=== PATIENT | female | born 1950 | race Caucasian/White ===

== ENCOUNTER 2020-12-16 12:15 | Inpatient (IN) ==
[2020-12-16 13:01] LABS: Mean Corpuscular Hemoglobin 30.5 pg (25-34); Mean Corpuscular Hgb Conc 33.3 g/dL (32-36); Mean Corpuscular Volume 91.5 fL (80-100); Platelet Count 297 K/uL (130-400); RDW Coefficient of Variation 13.6 % (11.5-14.5); RDW Standard Deviation 44.8 fL (36.4-46.3); Red Blood Count 4.26 M/uL (4.2-5.4); White Blood Count 9.68 K/uL (4.8-10.8)
[2020-12-16 13:04] LABS: iSTAT Creatinine 0.8 mg/dl (0.6-1.3); iSTAT Hemoglobin 13.6 g/dl (12.0-16.0); iSTAT Ionized Calcium 1.29 mmol/l (1.12-1.32); iSTAT Potassium 4.1 mmol/L (3.3-5.0)
--- NOTE | 2020-12-16 13:15 | XRay Report ---
XR chest 1V portable HISTORY: 70 years-old Female stroke alert acute strokelike symptoms COMPARISON: None TECHNIQUE: Portable AP view of the chest FINDINGS: Cardiomediastinal and hilar silhouettes are within normal limits. There is no pneumothorax, pleural e ffusion, airspace consolidation or overt pulmonary edema. The bones of the chest appear grossly intac t. IMPRESSION: No acute process. ACT 112: Negative or not required by law. The above report was generated using voice recognition software. It may contain grammatical, syntax o r spelling errors. Electronically signed by: Jett Rizo M.D. 12/16/2020 1:14 PM
[2020-12-16 13:18] LABS: Albumin Level 4.2 gm/dl (3.4-5.0); BUN Creatinine Ratio 27.2 (10-20); Calcium 9.5 mg/dl (8.5-10.1); Creatinine Clr Calc Pharmacy 63.4 ml/min; Est GFR (African American) 99.7 ml/min; Est GFR (Non-African American) 86.1 ml/min; Magnesium 2.3 mg/dl (1.8-2.4)
[2020-12-16 13:21] LABS: Albumin Globulin Ratio 1.2 (0.9-2); Bilirubin,Total 0.6 mg/dl (0.2-1); Globulin 3.6 gm/dl (2.5-4.0); Total Protein 7.8 gm/dl (6.4-8.2)
[2020-12-16 13:25] LABS: INR 1.1 (0.9-1.1); Partial Thromboplastin Ratio 0.9; Partial Thromboplastin Time 23.9 Seconds (21.0-31.0); Prothrombin Time 11.3 Seconds (9.0-12.0)
[2020-12-16] MEDS ORDERED: OPTIRAY 350 500ml IV ONE (14:22)
--- NOTE | 2020-12-16 14:35 | CT Scan Report ---
CT ANGIOGRAPHY OF THE NECK WITH CONTRAST CLINICAL HISTORY: cva sx COMPARISON STUDY: No previous studies for comparison. Technique: CT angiography of the carotid and vertebral arteries was obtained using Optiray and 3D rec onstruction on an independent workstation. NASCET criteria was utilized. Automated exposure control was utilized for the study. A dose lowering technique was utilized adhering to the principles of ALA RA. Findings: Lung apices are unremarkable. There is no cervical lymphadenopathy. No acute cervical spine fracture is noted. The bilateral common carotid, cervical internal carotid and vertebral arteries ar e patent. There is no stenosis within these vessels. There is no dissection. No aneurysm within the n aric is noted. The head CT and CTA of the head will be reported separately. IMPRESSION: Unremarkable CTA of the neck. No stenosis or dissection. ACT 112: Negative or not required by law. Electronically signed by: Manfred Grove M.D. 12/16/2020 2:34 PM
--- NOTE | 2020-12-16 14:37 | CT Scan Report ---
CT angio head wo/w CT DOSE: 1015.89 mGy.cm CLINICAL HISTORY: Stroke like symptoms TECHNIQUE: Unenhanced images were obtained the brain. CT angiography was then performed a dynamic hel ical fashion during intravenous administration of 118 cc of Optiray 350. MIP images were acquired. A dose lowering technique was utilized adhering to the principles of ALARA. COMPARISON STUDY: Noncontrast head CT dated 04/12/2019 FINDINGS: Noncontrast images reveal no intra or extra-axial mass lesions. There is basal ganglial min eralization. Since the prior study, the patient has developed a 16 mm hypodense lesion within the rig ht lentiform nucleus. This is most consistent with an infarct, possibly subacute. There is no acute h emorrhage. There is no hydrocephalus. There is no evidence of acute sinusitis. Angiographic images reveal no evidence of aneurysm. There is no evidence of major intracranial branch occlusion. The dural venous sinuses appear patent. There are no pathologically enhancing masses. IMPRESSION: 1. Interval development of a 16 mm hypodense lesion within the right lentiform nucleus. This is most consistent with an infarct possibly subacute. An MRI could be obtained in follow-up for further datin g as deemed clinically necessary. 2. No evidence of aneurysm. No evidence of major intracranial branch occlusion or stenosis. ACT 112: Negative or not required by law. Electronically signed by: Hudson Mejia M.D. 12/16/2020 2:35 PM
--- NOTE | 2020-12-16 15:54 | History & Physical Report ---
Date of Service December 16, 2020 Assessment & Plan (1) CVA (cerebral vascular accident): This is a 70-year-old female with PMH of type 2 diabetes, dyslipidemia, asthma and other medical problems listed below who presents with strokelike symptoms over the past week and was found to have hypodense lesion within the right lentiform nucleus that is most consistent with an infarct, possibly subacute. Left facial droop and dysarthric speech for the past week, along with fatigue Head CTA with interval development of a 16 mm hypodense lesion within the right lentiform nucleus. This is most consistent with an infarct possibly subacute Neck CTA with unremarkable CTA of the neck. No stenosis or dissection MRI brain w/wo contrast, echo w/ bubble study Continue aspirin and statin, added plavix Neuro checks PT, OT, speech therapy evaluations Routine neurology consult (2) Diabetes mellitus, type II: Diet controlled (3) HLD (hyperlipidemia): Continue statin (4) Asthma: Continue Singulair, albuterol inhaler prn DVT Ppx: SQ heparin Code status: FULL PCP: Trent Dispo: Admitted to PCU. Discharge planning ordered per stroke set protocol. Patient seen in collaboration with Dr. Allen. Please see addendum. History of Present Illness Chief Complaint: Strokelike symptoms Primary Care Provider: Makenna Pichardo MD This is a 70-year-old female with PMH of type 2 diabetes, dyslipidemia, asthma and other medical problems listed below who presents with strokelike symptoms over the past week. Underwent cataract surgery on 11/24 and 12/08. After second surgery, and close friends noted facial droop of left side of mouth and slurred speech. Also having some difficulty swallowing liquids. Patient also notes feeling generally weak and off balance over the past week. With symptoms persisting, patient came into ED today for further evaluation. Denies any keon weakness of arms or legs. No fever, chills, lightheadedness, visual changes, chest pain, shortness of breath, nausea, vomiting, abdominal pain, dysuria, diarrhea or constipation. Family history significant for Martha's disease. Patient tested negative in 2016. Also with remote history of trigeminal neuralgia. Allergies Allergy/AdvReac Type Severity Reaction Status Date / Time Sulfa (Sulfonamide Allergy Unknown Rash Verified 12/16/20 15:08 Antibiotics) Home Medications Medication Instructions Recorded Confirmed Type albuterol sulfate [ProAir HFA] 1 puff INHALATION Q6H PRN 04/17/19 12/16/20 History aspirin 81 mg PO QAM 04/17/19 12/16/20 History montelukast [Singulair] 10 mg PO PM 04/17/19 12/16/20 History PreserVision AREDS-2 2 tab PO DAILY 10/13/20 12/16/20 History levocetirizine [Xyzal] 5 mg PO QPM 10/13/20 12/16/20 History lisinopril 2.5 mg PO QPM 10/13/20 12/16/20 History atorvastatin 80 mg PO HS 12/16/20 12/16/20 History Past Med/Surg History Medical History Diabetes mellitus, type II Hearing deficit History of anesthesia reaction difficulty waking HLD (hyperlipidemia) Osteoporosis Surgical History History of cardiac cath 2005--no stents History of cataract surgery History of colonoscopy History of dilatation and curettage x2 History of endoscopic sinus surgery History of lumbar laminectomy History of surgery on right wrist PLATE & 9 SCREWS History of tonsillectomy History of wisdom tooth extraction Family History Aunt Family history of diabetes mellitus Uncle Family history of diabetes mellitus Other Martha chorea No family history of adverse response to anesthesia Social History Smoking Status: Never smoker Second Hand Exposure: Yes (parents smoked); Hx Alcohol Use: Yes Alcohol type: wine Hx Substance Use: No Preferred Language: Urdu Communication Ability: Effective 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 Physical Exam Physical Exam: General Appearance: WD/WN, vitals as above, NAD, sitting up in bed, pleasant, conversing easily Head: normocephalic, atraumatic Eyes: normal inspection, PERRL, conjunctivae normal, anicteric sclerae ENT: external ear and nose normal, oropharynx normal Neck: normal visual inspection, trachea midline, no thyromegaly Respiratory: normal respiratory effort, lungs clear to auscultation, no wheeze, rales, rhonchi. No accessory muscle use Cardiovascular: regular rate, rhythm, no murmur, normal peripheral pulses, no BLE edema. Vessels: no JVD Chest: normal inspection of chest Abdomen/GI: normal bowel sounds, soft, nontender, no hepatosplenomegaly Extremities/Musculoskeletal: no cyanosis or clubbing, extremities motor strength 5/5 Neurologic: PERRL, EOMI, accommodation nl, + L facial droop, mild dysarthria, CN's II-XI intact bilaterally and moves all extremities Psychiatric: A+Ox3, euthymic affect Skin: no rashes, normal color, warm/dry Results & Data Results & Data ([facility]) Vital Signs (Past 12 Hours) Vital Signs Temp Pulse Resp BP Pulse Ox 12/16/20 14:00 59 L 20 144/70 H 99 12/16/20 13:30 61 16 111/68 97 12/16/20 13:00 71 19 139/83 100 12/16/20 12:53 65 15 97 12/16/20 12:47 65 20 132/80 99 12/16/20 12:18 36.7 C 67 18 152/88 H 94 Laboratory Results Short CBC 12/16/20 Range/Units 12:44 WBC 9.68 (4.8-10.8) K/uL Hgb 13.0 (12.0-16.0) g/dL Hct 39.0 (37-47) % Plt Count 297 (130-400) K/uL BMP 12/16/20 12:44 Sodium 138 Potassium 4.0 Chloride 107 Carbon Dioxide 25 BUN 20 H Creatinine 0.72 Glucose 101 H Calcium 9.5 Liver Function 12/16/20 Range/Units 12:44 Total Bilirubin 0.6 (0.2-1) mg/dl AST 30 (15-37) U/L ALT 42 (12-78) U/L Alkaline Phosphatase 89 (45-117) U/L Albumin 4.2 (3.4-5.0) gm/dl Diagnostic Findings Chest X-Ray 12/16/20 12:44 XR chest 1V portable HISTORY: 70 years-old Female stroke alert acute strokelike symptoms COMPARISON: None TECHNIQUE: Portable AP view of the chest FINDINGS: Cardiomediastinal and hilar silhouettes are within normal limits. There is no pneumothorax, pleural effusion, airspace consolidation or overt pulmonary edema. The bones of the chest appear grossly intact. IMPRESSION: No acute process. ACT 112: Negative or not required by law. The above report was generated using voice recognition software. It may contain grammatical, syntax or spelling errors. Electronically signed by: Jett Rizo M.D. 12/16/2020 1:14 PM Head CTA 12/16/20 13:11 CT angio head wo/w CT DOSE: 1015.89 mGy.cm CLINICAL HISTORY: Stroke like symptoms TECHNIQUE: Unenhanced images were obtained the brain. CT angiography was then performed a dynamic helical fashion during intravenous administration of 118 cc of Optiray 350. MIP images were acquired. A dose lowering technique was utilized adhering to the principles of ALARA. COMPARISON STUDY: Noncontrast head CT dated 04/12/2019 FINDINGS: Noncontrast images reveal no intra or extra-axial mass lesions. There is basal ganglial mineralization. Since the prior study, the patient has developed a 16 mm hypodense lesion within the right lentiform nucleus. This is most consistent with an infarct, possibly subacute. There is no acute hemorrhage. There is no hydrocephalus. There is no evidence of acute sinusitis. Angiographic images reveal no evidence of aneurysm. There is no evidence of major intracranial branch occlusion. The dural venous sinuses appear patent. There are no pathologically enhancing masses. IMPRESSION: 1. Interval development of a 16 mm hypodense lesion within the right lentiform nucleus. This is most consistent with an infarct possibly subacute. An MRI could be obtained in follow-up for further dating as deemed clinically necessary. 2. No evidence of aneurysm. No evidence of major intracranial branch occlusion or stenosis. ACT 112: Negative or not required by law. Electronically signed by: Hudson Mejia M.D. 12/16/2020 2:35 PM Neck CTA 12/16/20 13:11 CT ANGIOGRAPHY OF THE NECK WITH CONTRAST CLINICAL HISTORY: cva sx COMPARISON STUDY: No previous studies for comparison. Technique: CT angiography of the carotid and vertebral arteries was obtained using Optiray and 3D reconstruction on an independent workstation. NASCET criteria was utilized. Automated exposure control was utilized for the study. A dose lowering technique was utilized adhering to the principles of ALARA. Findings: Lung apices are unremarkable. There is no cervical lymphadenopathy. No acute cervical spine fracture is noted. The bilateral common carotid, cervical internal carotid and vertebral arteries are patent. There is no stenosis within these vessels. There is no dissection. No aneurysm within the neck is noted. The head CT and CTA of the head will be reported separately. IMPRESSION: Unremarkable CTA of the neck. No stenosis or dissection. ACT 112: Negative or not required by law. Electronically signed by: Manfred Grove M.D. 12/16/2020 2:34 PM Code Status & VTE Plan VTE Prophylaxis Plan VTE Prophylaxis will be ordered: Yes Supervising Physician Co-Signing Physician Notes Patient seen and examined care coordinated with Ana Mock PA-C. 70-year-old female, presented with strokelike symptoms, facial droop symptom has been ongoing for past several days, Patient had recent cataract surgery, has been feeling very ill for 1-2 weeks, after surgery possible secondary to anesthetic affect,: Continued nausea vomiting, poor appetite, severe fatigue, weakness CT head showed small lacunar infarct: Patient does not have any other neurological deficit except for left facial droop. No complaint of chest pain or shortness of breath Family history positive for coronary artery disease/[place], mother at age 70s while on coronary bypass surgery Patient will monitor in telemetry, rule out arrhythmia. For thromboembolic events Resting echo, MRI brain ordered for stroke work-up Started on dual antiplatelets aspirin and Plavix Neuro consult requested Please refer to further documentation by Ana Mock PA-C for discussion of other medical issues. Marielle Allen MD
[2020-12-16] MEDS ORDERED: ASPIRIN 81 MG CHEW PO STA (16:06)
--- NOTE | 2020-12-16 17:24 | Emergency Department Note ---
History of Present Illness General Chief complaint: Neuro Symptoms/Deficit Stated complaint: STROKE TYPE SYMPTOMS Time Seen by Provider: 12/16/20 12:48 Source: patient, family ( at the bedside) and RN notes reviewed Mode of arrival: ambulatory Limitations: no limitations History of Present Illness Provider complaint: Facial asymmetry, speech difficulty, change in personality Maximum Pain Intensity: 0 This patient is a 70-year-old female who presents to the emergency department with complaints of strokelike symptoms per her . Patient apparently had cataract surgery performed over the last several weeks. After the first surgery 3 weeks ago, the patient had significant vomiting. She had her second surgery last week and was very fatigued immediately afterwards. states she has not quite recovered. He has noticed a change in her personality as she is flatter than usual. She had some confusion with speaking to friends recently. He noticed some slurred speech and facial droop while the patient was on the phone with her son today. She denies any trauma, headaches, vomiting. She is having some visual changes but they believe this is related to the recent cataract surgery. Home Medications Medication Instructions Recorded Confirmed Type albuterol sulfate [ProAir HFA] 1 puff INHALATION Q6H PRN 04/17/19 12/16/20 History aspirin 81 mg PO QAM 04/17/19 12/16/20 History montelukast [Singulair] 10 mg PO PM 04/17/19 12/16/20 History PreserVision AREDS-2 2 tab PO DAILY 10/13/20 12/16/20 History levocetirizine [Xyzal] 5 mg PO QPM 10/13/20 12/16/20 History lisinopril 2.5 mg PO QPM 10/13/20 12/16/20 History atorvastatin 80 mg PO HS 12/16/20 12/16/20 History Allergies Allergy/AdvReac Type Severity Reaction Status Date / Time Sulfa (Sulfonamide Allergy Unknown Rash Verified 12/16/20 15:08 Antibiotics) Past Med/Surg History Medical History Diabetes mellitus, type II Hearing deficit History of anesthesia reaction difficulty waking HLD (hyperlipidemia) Osteoporosis Surgical History History of cardiac cath 2005--no stents History of cataract surgery History of colonoscopy History of dilatation and curettage x2 History of endoscopic sinus surgery History of lumbar laminectomy History of surgery on right wrist PLATE & 9 SCREWS History of tonsillectomy History of wisdom tooth extraction Family History Aunt Family history of diabetes mellitus Uncle Family history of diabetes mellitus Other Martha chorea No family history of adverse response to anesthesia Social History Smoking Status: Never smoker Second Hand Exposure: Yes (parents smoked); Hx Alcohol Use: Yes Alcohol type: wine Hx Substance Use: No Preferred Language: Kittitian Communication Ability: Effective 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 and A total of 10 systems reviewed and were otherwise negative Physical Exam Vital Signs Vital Signs - 24 hr 12/16/20 12:18 12/16/20 12:47 12/16/20 12:53 Temperature 36.7 C Temperature Source Temporal Artery Scan Pulse Rate 67 65 65 Pulse Rate from SpO2 Sensor 65 65 Respiratory Rate 18 20 15 Respiratory Effort / Characteristics Non-Labored Respiratory Depth Normal Blood Pressure 152/88 H 132/80 Blood Pressure Mean 109 97 Pulse Oximetry 94 99 97 Oxygen Delivery Method Room Air Sepsis Recent Fever Within 48 Hours No Sepsis New/Unexplained Change in Mental Status No Sepsis Action Taken by Nursing No Action Required 12/16/20 12:54 12/16/20 13:00 12/16/20 13:30 Temperature Temperature Source Pulse Rate 71 61 Pulse Rate from SpO2 Sensor 73 62 Respiratory Rate 19 16 Respiratory Effort / Characteristics Respiratory Depth Blood Pressure 139/83 111/68 Blood Pressure Mean 101 82 Pulse Oximetry 100 97 Oxygen Delivery Method Room Air Sepsis Recent Fever Within 48 Hours Sepsis New/Unexplained Change in Mental Status Sepsis Action Taken by Nursing 12/16/20 14:00 12/16/20 15:00 12/16/20 15:01 Temperature Temperature Source Pulse Rate 59 L 65 63 Pulse Rate from SpO2 Sensor 59 L Respiratory Rate 20 20 20 Respiratory Effort / Characteristics Respiratory Depth Blood Pressure 144/70 H 139/62 Blood Pressure Mean 94 87 Pulse Oximetry 99 Oxygen Delivery Method Sepsis Recent Fever Within 48 Hours Sepsis New/Unexplained Change in Mental Status Sepsis Action Taken by Nursing 12/16/20 15:10 12/16/20 15:20 12/16/20 15:30 Temperature Temperature Source Pulse Rate 63 65 61 Pulse Rate from SpO2 Sensor Respiratory Rate 18 19 14 Respiratory Effort / Characteristics Respiratory Depth Blood Pressure 131/77 Blood Pressure Mean 95 Pulse Oximetry Oxygen Delivery Method Sepsis Recent Fever Within 48 Hours Sepsis New/Unexplained Change in Mental Status Sepsis Action Taken by Nursing 12/16/20 15:40 Temperature Temperature Source Pulse Rate 71 Pulse Rate from SpO2 Sensor Respiratory Rate 18 Respiratory Effort / Characteristics Respiratory Depth Blood Pressure Blood Pressure Mean Pulse Oximetry Oxygen Delivery Method Sepsis Recent Fever Within 48 Hours Sepsis New/Unexplained Change in Mental Status Sepsis Action Taken by Nursing Vital signs reviewed. General: Well-appearing 70-year-old female, in no significant distress. HEENT: No junk tidal injection, PERRLA, neck supple. Cardiovascular: Regular rate and rhythm, no extra sounds. Pulmonary: Clear to auscultation bilaterally, normal work of breathing. Abdomen: Soft, nontender, nondistended, positive bowel sounds. Musculoskeletal: Atraumatic, no peripheral edema. Neurologic: Patient awake alert and oriented x 3, full strength in all 4 extremities. Cranial nerves 2 through 12 grossly intact with the exception of slight left nasolabial fold flattening. Intact [id number], negative pronator drift. Skin: Warm, dry, no rash Course Administered Medications Aspirin (Aspirin 81 Mg Ectab) 81 mg PO QAM [facility] Stop: 01/16/21 08:59 Last Admin: 12/17/20 08:20 Dose: 81 mg Documented by: [id number] Atorvastatin Calcium (Atorvastatin 40 Mg Tab) 80 mg PO HS [facility] Stop: 01/15/21 20:59 Last Admin: 12/17/20 20:58 Dose: 80 mg Documented by: [id number] Admin: 12/16/20 20:38 Dose: 80 mg Documented by: [id number] Cetirizine HCl (Cetirizine Hcl 10 Mg Tablet) 5 mg PO QPM [facility] Stop: 01/15/21 20:59 Last Admin: 12/17/20 20:59 Dose: 5 mg Documented by: [id number] Admin: 12/16/20 20:38 Dose: 5 mg Documented by: [id number] Clopidogrel Bisulfate (Clopidogrel Bisulfate 75 Mg Tab) 75 mg PO QAM [facility] Stop: 01/16/21 08:59 Last Admin: 12/17/20 08:20 Dose: 75 mg Documented by: [id number] Heparin Sodium (Porcine) (Heparin Sod 5,000 Unit/0.5 Ml Vial) 5,000 units SQ Q8 [facility] Stop: 01/15/21 21:59 Last Admin: 12/17/20 21:14 Dose: Not Given Documented by: [id number] Admin: 12/17/20 14:27 Dose: 5,000 units Documented by: [id number] Admin: 12/17/20 06:04 Dose: Not Given Documented by: [id number] Admin: 12/16/20 22:00 Dose: Not Given Documented by: [id number] Lisinopril (Lisinopril 2.5 Mg Tab) 2.5 mg PO QPM [facility] Stop: 01/15/21 20:59 Last Admin: 12/17/20 20:59 Dose: 2.5 mg Documented by: [id number] Admin: 12/16/20 20:38 Dose: 2.5 mg Documented by: [id number] Montelukast Sodium (Montelukast Sodium 10 Mg Tablet) 10 mg PO PM [facility] Stop: 01/15/21 20:59 Last Admin: 12/17/20 21:00 Dose: 10 mg Documented by: [id number] Admin: 12/16/20 20:39 Dose: 10 mg Documented by: [id number] Multivitamins/Minerals (Cerovite Adv Formula Tab) 1 tab PO DAILY [facility] Stop: 01/16/21 08:59 Last Admin: 12/17/20 08:20 Dose: 1 tab Documented by: [id number] Discontinued Medications Acetaminophen (Acetaminophen 325 Mg Tab) Confirm Administered Dose 650 mg .ROUTE .STK-MED ONE Stop: 12/17/20 09:29 Last Admin: 12/17/20 09:33 Dose: 650 mg Documented by: [id number] Aspirin (Aspirin 81 Mg Chew) 324 mg PO NOW STA Stop: 12/16/20 16:07 Last Admin: 12/16/20 16:28 Dose: 324 mg Documented by: [id number] Clopidogrel Bisulfate (Clopidogrel Bisulfate 75 Mg Tab) 75 mg PO NOW ONE Stop: 12/16/20 18:33 Last Admin: 12/16/20 19:19 Dose: 75 mg Documented by: [id number] Gadobutrol (Gadobutrol 65ml Vial) 5.3 ml IV ONCE ONE Stop: 12/16/20 22:48 Last Admin: 12/16/20 22:48 Dose: 5.3 ml Documented by: [id number] Ioversol (Optiray 350 500ml) 118 ml IV ONCE ONE Stop: 12/16/20 14:23 Last Admin: 12/16/20 14:23 Dose: 118 ml Documented by: [id number] Medical Decision Making Differential Diagnosis Infection, dehydration, metabolic abnormality, hypo/hyperglycemia, electrolyte disturbance, anemia, hypoxia, cardiac sources, intracerebral event, toxicologic, neurologic, as well as other pathologies. Medical Records Attestation: I reviewed the patient's medical records. Home Medications Current Medication List: was personally reviewed by me Laboratory Data Attestation: I reviewed the patient's lab results. Result diagrams: 12/17/20 05:31 12/17/20 05:31 Lab Results 12/16/20 12/16/20 12/16/20 Range/Units 12:44 12:44 12:44 WBC 9.68 (4.8-10.8) K/uL RBC 4.26 (4.2-5.4) M/uL Hgb 13.0 (12.0-16.0) g/dL POC Hgb (12.0-16.0) g/dl Hct 39.0 (37-47) % POC Hct (37-47) % MCV 91.5 (80-100) fL MCH 30.5 (25-34) pg MCHC 33.3 (32-36) g/dL RDW Std Deviation 44.8 (36.4-46.3) fL RDW Coeff of Santiago 13.6 (11.5-14.5) % Plt Count 297 (130-400) K/uL MPV 10.0 (7.4-10.4) fL PT 11.3 (9.0-12.0) Seconds INR 1.1 (0.9-1.1) APTT 23.9 (21.0-31.0) Seconds PTT Ratio 0.9 POC Sodium (135-144) mmol/L Sodium 138 (136-145) mmol/L POC Potassium (3.3-5.0) mmol/L Potassium 4.0 (3.5-5.1) mmol/L POC Chloride (101-112) mmol/L Chloride 107 (98-107) mmol/L Carbon Dioxide 25 (21-32) mmol/L POC Total CO2 (24-31) mmol/L Anion Gap 6.0 (3-11) POC Anion Gap (16-25) mmol/L POC BUN (7-18) mg/dl BUN 20 H (7-18) mg/dl Creatinine 0.72 (0.6-1.2) mg/dl POC Creatinine (0.6-1.3) mg/dl Est Cr Clr Drug Dosing 63.4 ml/min Est GFR ( Amer) 99.7 ml/min Est GFR (Non-Af Amer) 86.1 ml/min BUN/Creatinine Ratio 27.2 H (10-20) Glucose 101 H (70-99) mg/dl POC Glucose (70-99) mg/dl POC Glucose (other) (70-99) mg/dl Calcium 9.5 (8.5-10.1) mg/dl POC Ioniz Calcium Jeff (1.12-1.32) mmol/l Magnesium 2.3 (1.8-2.4) mg/dl Total Bilirubin 0.6 (0.2-1) mg/dl AST 30 (15-37) U/L ALT 42 (12-78) U/L Alkaline Phosphatase 89 (45-117) U/L Total Protein 7.8 (6.4-8.2) gm/dl Albumin 4.2 (3.4-5.0) gm/dl Globulin 3.6 (2.5-4.0) gm/dl Albumin/Globulin Ratio 1.2 (0.9-2) COVID-19 Eval Order SARS-CoV-2 (PCR) (Negative) 12/16/20 12/16/20 12/16/20 Range/Units 12:45 12:52 14:45 WBC (4.8-10.8) K/uL RBC (4.2-5.4) M/uL Hgb (12.0-16.0) g/dL POC Hgb 13.6 (12.0-16.0) g/dl Hct (37-47) % POC Hct 40 (37-47) % MCV (80-100) fL MCH (25-34) pg MCHC (32-36) g/dL RDW Std Deviation (36.4-46.3) fL RDW Coeff of Santiago (11.5-14.5) % Plt Count (130-400) K/uL MPV (7.4-10.4) fL PT (9.0-12.0) Seconds INR (0.9-1.1) APTT (21.0-31.0) Seconds PTT Ratio POC Sodium 140 (135-144) mmol/L Sodium (136-145) mmol/L POC Potassium 4.1 (3.3-5.0) mmol/L Potassium (3.5-5.1) mmol/L POC Chloride 103 (101-112) mmol/L Chloride (98-107) mmol/L Carbon Dioxide (21-32) mmol/L POC Total CO2 25 (24-31) mmol/L Anion Gap (3-11) POC Anion Gap 16.0 (16-25) mmol/L POC BUN 20 H (7-18) mg/dl BUN (7-18) mg/dl Creatinine (0.6-1.2) mg/dl POC Creatinine 0.8 (0.6-1.3) mg/dl Est Cr Clr Drug Dosing ml/min Est GFR ( Amer) ml/min Est GFR (Non-Af Amer) ml/min BUN/Creatinine Ratio (10-20) Glucose (70-99) mg/dl POC Glucose 108 H (70-99) mg/dl POC Glucose (other) 102 H (70-99) mg/dl Calcium (8.5-10.1) mg/dl POC Ioniz Calcium Jeff 1.29 (1.12-1.32) mmol/l Magnesium (1.8-2.4) mg/dl Total Bilirubin (0.2-1) mg/dl AST (15-37) U/L ALT (12-78) U/L Alkaline Phosphatase (45-117) U/L Total Protein (6.4-8.2) gm/dl Albumin (3.4-5.0) gm/dl Globulin (2.5-4.0) gm/dl Albumin/Globulin Ratio (0.9-2) COVID-19 Eval Order Covid19 at [facility] SARS-CoV-2 (PCR) (Negative) 12/16/20 Range/Units 14:45 WBC (4.8-10.8) K/uL RBC (4.2-5.4) M/uL Hgb (12.0-16.0) g/dL POC Hgb (12.0-16.0) g/dl Hct (37-47) % POC Hct (37-47) % MCV (80-100) fL MCH (25-34) pg MCHC (32-36) g/dL RDW Std Deviation (36.4-46.3) fL RDW Coeff of Santiaog (11.5-14.5) % Plt Count (130-400) K/uL MPV (7.4-10.4) fL PT (9.0-12.0) Seconds INR (0.9-1.1) APTT (21.0-31.0) Seconds PTT Ratio POC Sodium (135-144) mmol/L Sodium (136-145) mmol/L POC Potassium (3.3-5.0) mmol/L Potassium (3.5-5.1) mmol/L POC Chloride (101-112) mmol/L Chloride (98-107) mmol/L Carbon Dioxide (21-32) mmol/L POC Total CO2 (24-31) mmol/L Anion Gap (3-11) POC Anion Gap (16-25) mmol/L POC BUN (7-18) mg/dl BUN (7-18) mg/dl Creatinine (0.6-1.2) mg/dl POC Creatinine (0.6-1.3) mg/dl Est Cr Clr Drug Dosing ml/min Est GFR ( Amer) ml/min Est GFR (Non-Af Amer) ml/min BUN/Creatinine Ratio (10-20) Glucose (70-99) mg/dl POC Glucose (70-99) mg/dl POC Glucose (other) (70-99) mg/dl Calcium (8.5-10.1) mg/dl POC Ioniz Calcium Jeff (1.12-1.32) mmol/l Magnesium (1.8-2.4) mg/dl Total Bilirubin (0.2-1) mg/dl AST (15-37) U/L ALT (12-78) U/L Alkaline Phosphatase (45-117) U/L Total Protein (6.4-8.2) gm/dl Albumin (3.4-5.0) gm/dl Globulin (2.5-4.0) gm/dl Albumin/Globulin Ratio (0.9-2) COVID-19 Eval Order SARS-CoV-2 (PCR) NEGATIVE (Negative) Imaging Data Radiologist's Impression: Chest X-Ray 12/16/20 12:44 XR chest 1V portable HISTORY: 70 years-old Female stroke alert acute strokelike symptoms COMPARISON: None TECHNIQUE: Portable AP view of the chest FINDINGS: Cardiomediastinal and hilar silhouettes are within normal limits. There is no pneumothorax, pleural effusion, airspace consolidation or overt pulmonary edema. The bones of the chest appear grossly intact. IMPRESSION: No acute process. ACT 112: Negative or not required by law. The above report was generated using voice recognition software. It may contain grammatical, syntax or spelling errors. Electronically signed by: Jett Rizo M.D. 12/16/2020 1:14 PM Head CTA 12/16/20 13:11 CT angio head wo/w CT DOSE: 1015.89 mGy.cm CLINICAL HISTORY: Stroke like symptoms TECHNIQUE: Unenhanced images were obtained the brain. CT angiography was then performed a dynamic helical fashion during intravenous administration of 118 cc of Optiray 350. MIP images were acquired. A dose lowering technique was utilized adhering to the principles of ALARA. COMPARISON STUDY: Noncontrast head CT dated 04/12/2019 FINDINGS: Noncontrast images reveal no intra or extra-axial mass lesions. There is basal ganglial mineralization. Since the prior study, the patient has developed a 16 mm hypodense lesion within the right lentiform nucleus. This is most consistent with an infarct, possibly subacute. There is no acute hemorrhage. There is no hydrocephalus. There is no evidence of acute sinusitis. Angiographic images reveal no evidence of aneurysm. There is no evidence of major intracranial branch occlusion. The dural venous sinuses appear patent. There are no pathologically enhancing masses. IMPRESSION: 1. Interval development of a 16 mm hypodense lesion within the right lentiform nucleus. This is most consistent with an infarct possibly subacute. An MRI could be obtained in follow-up for further dating as deemed clinically necessary. 2. No evidence of aneurysm. No evidence of major intracranial branch occlusion or stenosis. ACT 112: Negative or not required by law. Electronically signed by: Hudson Mejia M.D. 12/16/2020 2:35 PM Neck CTA 12/16/20 13:11 CT ANGIOGRAPHY OF THE NECK WITH CONTRAST CLINICAL HISTORY: cva sx COMPARISON STUDY: No previous studies for comparison. Technique: CT angiography of the carotid and vertebral arteries was obtained using Optiray and 3D reconstruction on an independent workstation. NASCET criteria was utilized. Automated exposure control was utilized for the study. A dose lowering technique was utilized adhering to the principles of ALARA. Findings: Lung apices are unremarkable. There is no cervical lymphadenopathy. No acute cervical spine fracture is noted. The bilateral common carotid, cervical internal carotid and vertebral arteries are patent. There is no stenosis within these vessels. There is no dissection. No aneurysm within the neck is noted. The head CT and CTA of the head will be reported separately. IMPRESSION: Unremarkable CTA of the neck. No stenosis or dissection. ACT 112: Negative or not required by law. Electronically signed by: Manfred Grove M.D. 12/16/2020 2:34 PM ECG Data Attestation: I personally reviewed and interpreted this ECG as follows: Indication: + weakness Rate (beats per minute): 67 Rhythm: + normal sinus ECG Intervals/blocks: + Normal QRS and + Normal QT-c ECG [place]: + Normal ECG ST segments: + Normal ST segments ECG Findings: no PACs and no PVCs Blood Pressure Blood Pressure Findings: Elevated blood pressure Blood Pressure Disposition: further management by hospitalist MDM Narrative This patient was evaluated and appeared to be in no significant distress. IV access was obtained and laboratory work was drawn. An order for cardiac monitoring was placed and the patient is noted to be in a sinus rhythm at [address] imaging of the head and neck was performed and reveals an interval development of a 16mm hypodense lesion within the right lentiform nucleus, consistent with subacute infarct. Patient was given aspirin 324 mg to chew. EKG can perms a sinus rhythm without of ischemia or ectopy. Patient and her were made aware of the findings. Covid swab was performed and is negative. I did discuss the case with the hospitalist service who will evaluate the patient for admission and further management. Impression & Plan Cerebrovascular accident Discharge Plan Visit Data Chief Complaint: Neuro Symptoms/Deficit Stated Complaint: STROKE TYPE SYMPTOMS ED Provider: Natacha Avery Discharge Problem: Cerebrovascular accident Patient Disposition: Admitted As Inpatient Discharge Instructions Interventions: ED Discharge Assessment Last Done: 12/16/20 17:48 Discharge Problem: Cerebrovascular accident Qualifiers: CVA mechanism: unspecified Qualified Code(s): I63.9 - Cerebral infarction, unspecified
[2020-12-16] MEDS ORDERED: CLOPIDOGREL BISULFATE 75 MG TAB PO ONE (18:32)
[2020-12-16] MEDS ORDERED: PHARMACIST DISCHARGE MED REC CONSULT PRN (18:32)
[2020-12-16] MEDS ORDERED: POLYETHYLENE (MIRALAX) 17 GM PACK PO PRN (18:32)
[2020-12-16] MEDS ORDERED: ONDANSETRON INJ 2 MG/ML 2 ML VIAL IV PRN (18:32)
[2020-12-16] MEDS ORDERED: ALBUTEROL HFA 8 GM INHALER INH PRN (18:47)
[2020-12-16] MEDS: lisinopril 2.5 MG TAB PO SCH (20:38)
[2020-12-16] MEDS: CETIRIZINE HCL 10 MG TABLET PO SCH (20:38)
[2020-12-16] MEDS: ATORVASTATIN 40 MG TAB PO SCH (20:38)
[2020-12-16] MEDS: MONTELUKAST SODIUM 10 MG TABLET PO SCH (20:39)
[2020-12-16] MEDS: HEPARIN SOD 5,000 UNIT/0.5 ML VIAL SQ SCH (22:00)
[2020-12-16] MEDS ORDERED: GADOBUTROL 65ML VIAL IV ONE (22:47)
[2020-12-17 05:52] LABS: Hematocrit (blood only) 34.8 % (37-47); Hemoglobin 11.8 g/dL (12.0-16.0); Mean Corpuscular Hemoglobin 30.8 pg (25-34); Mean Corpuscular Hgb Conc 33.9 g/dL (32-36); Mean Corpuscular Volume 90.9 fL (80-100); Mean Platelet Volume 10.1 fL (7.4-10.4); Platelet Count 258 K/uL (130-400); RDW Coefficient of Variation 13.5 % (11.5-14.5); RDW Standard Deviation 45.3 fL (36.4-46.3); Red Blood Count 3.83 M/uL (4.2-5.4); White Blood Count 7.28 K/uL (4.8-10.8)
[2020-12-17] MEDS: HEPARIN SOD 5,000 UNIT/0.5 ML VIAL SQ SCH ×3 (06:04→21:14)
[2020-12-17 06:14] LABS: Estimated Average Glucose 140 mg/dl; Hemoglobin A1C 6.5 % (4.5-5.6)
[2020-12-17 06:21] LABS: BUN Creatinine Ratio 24.4 (10-20); Calcium 8.5 mg/dl (8.5-10.1); Creatinine Clr Calc Pharmacy 73.6 ml/min; Est GFR (African American) 107.4 ml/min; Est GFR (Non-African American) 92.7 ml/min; Potassium 4.1 mmol/L (3.5-5.1)
--- NOTE | 2020-12-17 08:19 | Electrocardiogram Report ---
Test Reason : Blood Pressure : / mmHG Vent. Rate : 067 BPM Atrial Rate : 067 BPM P-R Int : 152 ms QRS Dur : 084 ms QT Int : 398 ms P-R-T Axes : 036 015 028 degrees QTc Int : 420 ms Normal sinus rhythm Low voltage QRS Borderline ECG No previous ECGs available Confirmed by Chuckie Alfaro ([id number]) on 12/17/2020 8:19:45 AM Referred By: REFERRED SELF Confirmed By:Chuckie Alfaro
[2020-12-17] MEDS: CLOPIDOGREL BISULFATE 75 MG TAB PO SCH (08:20)
[2020-12-17] MEDS: CEROVITE ADV FORMULA TAB PO SCH (08:20)
[2020-12-17] MEDS: ASPIRIN 81 MG ECTAB PO SCH (08:20)
[2020-12-17] MEDS ORDERED: ACETAMINOPHEN 325 MG TAB PO PRN (09:25)
[2020-12-17] MEDS: ACETAMINOPHEN 325 MG TAB ONE ×2 (09:33)
--- NOTE | 2020-12-17 09:42 | Magnetic Resonance Report ---
MRI OF THE BRAIN WITHOUT AND WITH IV CONTRAST CLINICAL HISTORY: Subacute stroke. Slurred speech. Left facial droop. Difficulty in ambulation. COMPARISON STUDY: CT scan dated 12/16/2020 TECHNIQUE: MRI of the brain was performed from the vertex to the skull base utilizing various T1 and T2 weighted sequences. Following the IV administration of 5.3 mL of Gadavist contrast, additional enh anced images were obtained. FINDINGS: Sagittal T1, axial diffusion, proton density and T2 weighted axial, coronal FLAIR, and pre and post a xial T1-weighted images were acquired. These were supplemented with post gadolinium coronal T1 weight ed images. No intra or extra-axial mass lesions are visualized. There is a 22 mm focus of restricted water diffusion within the right lentiform nucleus. This is quinton cative of a subacute infarct. There is no evidence of ventricular dilatation. Proton density T2-weighted and FLAIR images reveal scattered foci of increased T2 signal within the w love matter, likely on a small vessel basis. In addition there is increased FLAIR signal in the regio n of a subacute right lentiform nucleus infarct. There are no abnormal flow voids. There is no evidence of pathologic enhancement. IMPRESSION: 1. 22 mm focus of restricted water diffusion within the right lentiform nucleus. There is associated increased T2 and FLAIR signal. The findings are indicative of a subacute infarct 2. No evidence of intracranial mass. ACT 112: Negative or not required by law. Electronically signed by: Hudson Mejia M.D. 12/17/2020 9:40 AM
--- NOTE | 2020-12-17 14:28 | Neurology Consultation ---
Date of Consultation December 17, 2020 Assessment & Plan (1) Cerebrovascular accident: 1. MRI brain- 22 mm right lentiform nucleus infarct (subacute) 2. TTE- if not already done 3. CTA no occlusion or high grade stenosis 4. optimzie HTN HLD, DM LDL <70 5. outpatient ZIO 6. start plavix 75 mg daily and continue aspirin 81 mg daily x 21 days then stop aspirin and continue plavix for a lifetime follow up neurology in 4-6 weeks. Naty BERNABE Present on Admission?: Yes (2) HLD (hyperlipidemia): 1. optimize LDL <70 Present on Admission?: Yes (3) Diabetes mellitus, type II: 1. continue to monitor- PCP for further management Present on Admission?: Yes Supervising Physician Co-Signing Physician Notes I have seen and discussed above patient with Dr Naty Srivastava, neurology. Patient seen and examined. She remains with a left facial droop mild dysarthria left drift. This patient has sustained a right deep white matter SAUMYA tick in the form infarct day or so after cataract surgery under local anesthesia. There is no high-grade stenosis in the intracranial extracranial circulation. EKG was sinus rhythm. Agree with dual anti-platelet therapy as above follow-up on echo patient will need a night monitor post discharge. LDL is eighty goal is 70 or less. Patient should address further control of diabetes with primary care as an outpatient. Previously should follow up failed to tolerate metformin due to ongoing weight loss. Naty Srivastava MD History of Present Illness Reason for Consultation: subacute stroke, R lentiform nucleus Requesting Physician: Mirela Urrutia MD Attending Physician: Mirela Urrutia MD History of Present Illness Torrie is a 70 year old female with PMH- DM2, HLD, asthma. She presented with strokelike symptoms 12/16/2020 [facility] ED which were over the past week and was found to have hypodense lesion within the right lentiform nucleus that is most consistent with an infarct, possibly subacute. She has left facial droop and dysarthric speech for the past week, along with fatigue. CTA head with interval development of a 16 mm hypodense lesion within the right lentiform nucleus. According to her she had cataract surgery bilateral last one was 12/08/2020. She started having symptoms after the surgery but he thought it was because she had been sick from the first surgery. They had gone away with friends on Tuesday and her friend knew something was wrong. She was a bit confused and was slurring her speech. denies CP, SOB, abdominal pain, +left sided UE/LE weakness, facial droop (she feels is resolving). Allergies Allergy/AdvReac Type Severity Reaction Status Date / Time Sulfa (Sulfonamide Allergy Unknown Rash Verified 12/16/20 15:08 Antibiotics) Home Medications Medication Instructions Recorded Confirmed Type albuterol sulfate [ProAir HFA] 1 puff INHALATION Q6H PRN 04/17/19 12/16/20 History aspirin 81 mg PO QAM 04/17/19 12/16/20 History montelukast [Singulair] 10 mg PO PM 04/17/19 12/16/20 History PreserVision AREDS-2 2 tab PO DAILY 10/13/20 12/16/20 History levocetirizine [Xyzal] 5 mg PO QPM 10/13/20 12/16/20 History lisinopril 2.5 mg PO QPM 10/13/20 12/16/20 History atorvastatin 80 mg PO HS 12/16/20 12/16/20 History Patient History Medical History Diabetes mellitus, type II Hearing deficit History of anesthesia reaction difficulty waking HLD (hyperlipidemia) Osteoporosis Surgical History History of cardiac cath 2005--no stents History of cataract surgery History of colonoscopy History of dilatation and curettage x2 History of endoscopic sinus surgery History of lumbar laminectomy History of surgery on right wrist PLATE & 9 SCREWS History of tonsillectomy History of wisdom tooth extraction Family History Aunt Family history of diabetes mellitus Uncle Family history of diabetes mellitus Other [place] chorea No family history of adverse response to anesthesia Social History Smoking Status: Never smoker Second Hand Exposure: Yes (parents smoked); Hx Alcohol Use: Yes Alcohol type: wine Hx Substance Use: No Preferred Language: [place] Communication Ability: Effective 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 Beliefs That Will Affect Care: None Current Living Situation: Spouse Other Information That Helps Us Care for You: No Feels Safe at Home: Yes Assistive Devices: Glasses Review of Systems Review of Systems: All systems reviewed & are unremarkable except as noted in HPI & below Physical Exam Physical Exam: Physica Constitutional: appearance nourished, healthy and normal Ears, Nose, Mouth and Throat: mucous membranes moist, no injection and skin normal, eyes normal Cardiovascular: normal S-1 and S-2 and regular rate and rhythm Respiratory: clear to auscultation (CTA) Musculoskeletal: no peripheral edema and good distal pulses Skin: no stigmata of neurocutaneous disease noted and normal and intact Eyes: extraocular muscles intact (EOMI) and pupils equal, round and reactive to light (PERRL), gross peripheral vision intact NEUROLOGIC EXAMINATION: Mental status: Alert and interactive Oriented to full date and location Oriented to person Speech dysphasia with some words. identifies thumb, pen,ring, button, can say no ifs ands or buts Cranial Nerves left sided facial droop flattening of nasolabial fold on left eye brow raise symmetric Reflexes: Deep tendon reflexes were symmetrical and graded 2/5. down going toes Sensory: light cool and vibration intact Coordination: finger to nose intact on right slight dysmetric on left Gait/Stance: Posture normal. 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 left 4+/5, right 5/5, hip flex 5/5 bilaterally patellar flex ext 4+/5 left, plantar flex ext 5/5 bilaterally Results & Data ([facility]) Vital Signs (Past 12 Hours) Vital Signs Temp Pulse Pulse Resp BP BP Pulse Ox 12/17/20 08:00 36.5 C 60 79 18 112/68 98 12/17/20 04:00 36.4 C L 52 L 16 114/75 99 Laboratory Results Abnormal lab results 12/16/20 12/17/20 12/17/20 Range/Units 19:34 05:31 05:31 RBC 3.83 L (4.2-5.4) M/uL Hgb 11.8 L (12.0-16.0) g/dL Hct 34.8 L (37-47) % Chloride 109 H (98-107) mmol/L BUN/Creatinine Ratio 24.4 H (10-20) Glucose 114 H (70-99) mg/dl POC Glucose 126 H (70-99) mg/dl Hemoglobin A1c (4.5-5.6) % 12/17/20 Range/Units 05:31 RBC (4.2-5.4) M/uL Hgb (12.0-16.0) g/dL Hct (37-47) % Chloride (98-107) mmol/L BUN/Creatinine Ratio (10-20) Glucose (70-99) mg/dl POC Glucose (70-99) mg/dl Hemoglobin A1c 6.5 H (4.5-5.6) % Diagnostic Findings CTA head-. Interval development of a 16 mm hypodense lesion within the right lentiform nucleus. This is most consistent with an infarct possibly subacute. An MRI could be obtained in follow-up for further dating as deemed clinically necessary. No evidence of aneurysm. No evidence of major intracranial branch occlusion or s tenosis. CTA neck-Unremarkable CTA of the neck. No stenosis or dissection. MRI brain-22 mm focus of restricted water diffusion within the right lentiform nucleus. There is associated increased T2 and FLAIR signal. The findings are indicative of a subacute infarct No evidence of intracranial mass. (1) Cerebrovascular accident CVA mechanism: unspecified Qualified Code(s): I63.9 - Cerebral infarction, unspecified
--- NOTE | 2020-12-17 16:49 | Hospitalist Progress Note ---
Date of Service December 17, 2020 Assessment & Plan (1) CVA (cerebral vascular accident): This is a 70-year-old female with PMH of type 2 diabetes, dyslipidemia, asthma and other medical problems listed below who presents with strokelike symptoms over the past week and was found to have hypodense lesion within the right lentiform nucleus that is most consistent with an infarct, possibly subacute. Left facial droop and dysarthric speech for the past week, along with fatigue Head CTA with interval development of a 16 mm hypodense lesion within the right lentiform nucleus. Neck CTA with unremarkable CTA of the neck. No stenosis or dissection MRI brain w/wo contrast revealed 2 mm focus of restricted water diffusion within the right lentiform nucleus. There is associated increased T2 and FLAIR signal. The findings are indicative of a subacute infarct. Echo w/ bubble study Continue aspirin and statin, and plavix Work with PT/OT. Transthoracic echo has been ordered. (2) Diabetes mellitus, type II: Diet controlled (3) HLD (hyperlipidemia): Continue statin (4) Asthma: Continue Singulair, albuterol inhaler prn DVT Ppx: SQ heparin Code status: FULL PCP: [facility] Admission and Anticipated Discharge Date Admission Date: December 16, 2020 Subjective Patient is doing okay this morning. Reports her speech is improving as well as her left upper extremity weakness denies any headache or dizziness. Has any chest pain or shortness of breath. Denies any abdominal pain, diarrhea or dysuria. Review of Systems Review of Systems: All systems reviewed & are unremarkable except as noted in HPI & below Physical Exam Physical Exam: General: A&Ox3 HENT: NCAT, MMM, EOMI Eyes: PERRLA Neck: Supple, normal range of motion CVS: normal rate and rhythm Resp: b/l good breath sounds Abdomen: Soft, ND/NT, +BS Extremities: No c/c/e Neuro: face symmetric, noted facial droop, left upper extremity is weaker than the right but is improving Skin: warm and dry, no rashes/lesions/errythema MSK: normal ROM, no joint swelling/erythema Results & Data Results & Data ([facility]) Vital Signs (Past 12 Hours) Vital Signs Temp Pulse Pulse Resp BP Pulse Ox 12/17/20 15:44 37.0 C 64 16 108/67 97 12/17/20 14:55 61 12/17/20 08:00 36.5 C 60 79 18 112/68 98
[2020-12-17] MEDS: ATORVASTATIN 40 MG TAB PO SCH (20:58)
[2020-12-17] MEDS: CETIRIZINE HCL 10 MG TABLET PO SCH (20:59)
[2020-12-17] MEDS: lisinopril 2.5 MG TAB PO SCH (20:59)
[2020-12-17] MEDS: MONTELUKAST SODIUM 10 MG TABLET PO SCH (21:00)
[2020-12-18] MEDS: HEPARIN SOD 5,000 UNIT/0.5 ML VIAL SQ SCH (05:57)
[2020-12-18 06:48] LABS: Hemoglobin 12.7 g/dL (12.0-16.0); Mean Corpuscular Hemoglobin 30.7 pg (25-34); Mean Corpuscular Hgb Conc 33.4 g/dL (32-36); Mean Corpuscular Volume 91.8 fL (80-100); Mean Platelet Volume 10.3 fL (7.4-10.4); Platelet Count 268 K/uL (130-400); RDW Coefficient of Variation 13.3 % (11.5-14.5); RDW Standard Deviation 44.8 fL (36.4-46.3); Red Blood Count 4.14 M/uL (4.2-5.4); White Blood Count 7.55 K/uL (4.8-10.8)
[2020-12-18 07:33] LABS: BUN Creatinine Ratio 24.3 (10-20); Calcium 9.4 mg/dl (8.5-10.1); Creatinine Clr Calc Pharmacy 69.6 ml/min; Est GFR (African American) 106.8 ml/min; Est GFR (Non-African American) 92.2 ml/min; Potassium 4.1 mmol/L (3.5-5.1)
[2020-12-18] MEDS: CEROVITE ADV FORMULA TAB PO SCH (08:11)
[2020-12-18] MEDS: CLOPIDOGREL BISULFATE 75 MG TAB PO SCH (08:11)
[2020-12-18] MEDS: ASPIRIN 81 MG ECTAB PO SCH (08:11)
[2020-12-18] MEDS ORDERED: STROKE PATIENT DISCHARGE STA (10:40)
--- NOTE | 2020-12-18 11:11 | Pharmacy Report ---
Pharmacist Stroke Counseling - Date of Service December 18, 2020 - Scope: Pharmacy has been consulted to provide medication discharge counseling for this patient admitted with ischemic stroke as per the Pharmacist Discharge Counseling for Stroke Patients Protocol. - Medications on Discharge: Home Medications Medication Instructions Recorded Confirmed albuterol sulfate [ProAir HFA] 1 puff INHALATION Q6H PRN 04/17/19 12/16/20 montelukast [Singulair] 10 mg PO PM 04/17/19 12/16/20 PreserVision AREDS-2 2 tab PO DAILY 10/13/20 12/16/20 levocetirizine [Xyzal] 5 mg PO QPM 10/13/20 12/16/20 lisinopril 2.5 mg PO QPM 10/13/20 12/16/20 atorvastatin 80 mg PO HS 12/16/20 12/16/20 New Rx's Medication Instructions Recorded aspirin 81 mg PO QAM #19 tab 12/18/20 clopidogrel 75 mg PO QAM #30 tab 12/18/20 - Action: The above medications, specifically ones for stroke treatment/prophylaxis, have been reviewed in detail with the patient and/or patient mortician supplies sales representative(s) prior to discharge. This includes indication, common adverse reactions, drug interactions, and medication administration. Medication counseling has been employed using the teach-back method to ensure understanding. - Outcome: The patient and/or patient mortician supplies sales representative(s) have demonstrated understanding of the medications. Additional comments: Ms Chandra did not have any additional questions regarding her stroke medications. Plavix is the only new medication for her. We reviewed the plan to take ASA/Plavix x21 days, then she will stop ASA and continue Plavix indefinitely. I asked her to confirm this with her providers at f/u appts post- discharge. Thank you for allowing pharmacy to be involved in the care of this patient. Please call [phone] with any additional questions
--- NOTE | 2020-12-18 11:50 | Discharge Summary ---
Date of Service December 18, 2020 Admission HPI Per Admitting Provider This is a 70-year-old female with PMH of type 2 diabetes, dyslipidemia, asthma and other medical problems listed below who presents with strokelike symptoms over the past week. Underwent cataract surgery on 11/24 and 12/08. After second surgery, and close friends noted facial droop of left side of mouth and slurred speech. Also having some difficulty swallowing liquids. Patient also notes feeling generally weak and off balance over the past week. With symptoms persisting, patient came into ED today for further evaluation. Denies any keon weakness of arms or legs. No fever, chills, lightheadedness, visual changes, chest pain, shortness of breath, nausea, vomiting, abdominal pain, dysuria, diarrhea or constipation. Family history significant for Creek's disease. Patient tested negative in 2016. Also with remote history of trigeminal neuralgia. Admission Exam Per Admitting Provider General Appearance: WD/WN, vitals as above, NAD, sitting up in bed, pleasant, conversing easily Head: normocephalic, atraumatic Eyes: normal inspection, PERRL, conjunctivae normal, anicteric sclerae ENT: external ear and nose normal, oropharynx normal Neck: normal visual inspection, trachea midline, no thyromegaly Respiratory: normal respiratory effort, lungs clear to auscultation, no wheeze, rales, rhonchi. No accessory muscle use Cardiovascular: regular rate, rhythm, no murmur, normal peripheral pulses, no BLE edema. Vessels: no JVD Chest: normal inspection of chest Abdomen/GI: normal bowel sounds, soft, nontender, no hepatosplenomegaly Extremities/Musculoskeletal: no cyanosis or clubbing, extremities motor strength 5/5 Neurologic: PERRL, EOMI, accommodation nl, + L facial droop, mild dysarthria, CN's II-XI intact bilaterally and moves all extremities Psychiatric: A+Ox3, euthymic affect Skin: no rashes, normal color, warm/dry Principal Diagnosis CVA Discharge Exam General: A&Ox3 HENT: NCAT, MMM, EOMI Eyes: PERRLA Neck: Supple, normal range of motion CVS: normal rate and rhythm Resp: b/l good breath sounds Abdomen: Soft, ND/NT, +BS Extremities: No c/c/e Neuro: face symmetric, noted facial droop, left upper extremity is weaker than the right but is improving Skin: warm and dry, no rashes/lesions/errythema MSK: normal ROM, no joint swelling/erythema Discharge Data Allergies Allergy/AdvReac Type Severity Reaction Status Date / Time Sulfa (Sulfonamide Allergy Unknown Rash Verified 12/16/20 15:08 Antibiotics) Consultations 12/16/20 16:03 ED Decision to Admit Stat 12/16/20 18:32 Consult Neurology Routine Ordered Studies 12/16/20 13:11 CT angio head wo/w Stat CT angio neck with con Stat 12/16/20 18:32 MR brain wo/w con Routine Hospital Course (1) CVA (cerebral vascular accident): This is a 70-year-old female with PMH of type 2 diabetes, dyslipidemia, asthma and other medical problems listed below who presents with strokelike symptoms over the past week and was found to have hypodense lesion within the right lentiform nucleus that is most consistent with an infarct, possibly subacute. Left facial droop and dysarthric speech for the past week, along with fatigue Head CTA with interval development of a 16 mm hypodense lesion within the right lentiform nucleus. Neck CTA with unremarkable CTA of the neck. No stenosis or dissection MRI brain w/wo contrast revealed 2 mm focus of restricted water diffusion within the right lentiform nucleus. There is associated increased T2 and FLAIR signal. The findings are indicative of a subacute infarct. Echo w/ bubble study Continue aspirin and statin, and plavix. Aspirin and Plavix for 21 days total followed by Plavix for lifetime. Transthoracic echo was obtained which did not reveal any concerning findings and work with PT/OT and was referred to outpatient PT/OT on the day of discharge patient was doing okay. No new neurological deficits. Hemodynamically patient was doing fine. Patient was discharged in stable condition. (2) Diabetes mellitus, type II: Diet controlled (3) HLD (hyperlipidemia): Continue statin (4) Asthma: Continue Singulair, albuterol inhaler prn Total Time Total Time Spent Total Time Spent (In Minutes): 35 Discharge Plan Discharge Items Patient Disposition: Home - Self-Care Reason For Visit: LESION WITHIN R LENTIFORM NUCLEUS, SUBACUTE STROKE Discharge Diagnosis: CAV Activity: Resume your previous activity Non-emergency contact: Primary Care Provider Call non-emergency contact if: your symptoms worsen Follow-up/Referrals: Makenna Pichardo MD [Primary Care Provider] - 12/23/20 10:20 am (Date & Time 12/23/2020 10:20 AM Provider Makenna Newman MD Department General Internal Medicine [facility] ) Diet: Heart Healthy Addtl Attending Provider Instructions: Follow-up with your primary care physician and neurology as an outpatient. Appointments have been requested. Take aspirin and Plavix for 19 more days followed by Plavix only for lifetime. Pending Studies at Discharge: No Stand-Alone Forms: Medications to Prevent Stroke, [facility] [employer], Smoking Cessation Medications and DC Order Prescriptions: New clopidogrel 75 mg Tablet 75 mg PO QAM Qty: 30 RF: 0 aspirin 81 mg Tablet,Delayed Release (Dr/Ec) 81 mg PO QAM Qty: 19 RF: 0 Continued montelukast [Singulair] 10 mg Tablet 10 mg PO PM RF: 0 albuterol sulfate [ProAir HFA] 90 mcg/actuation Hfa Aerosol Inhaler 1 puff INHALATION Q6H PRN (Reason: Shortness Of Breath) RF: 0 atorvastatin 80 mg tablet 80 mg PO HS RF: 0 levocetirizine [Xyzal] 5 mg Tablet 5 mg PO QPM RF: 0 lisinopril 2.5 mg Tablet 2.5 mg PO QPM RF: 0 PreserVision AREDS-2 250-90-40-1 mg Capsule 2 tab PO DAILY RF: 0 Discontinued aspirin 81 mg Tablet,Delayed Release (Dr/Ec) 81 mg PO QAM RF: 0 Discharge Orders: Discharge Order (Routine); Ordered 12/18/20 Ordered By: Mirela Peña/Other Patient Handouts: Taking NSAIDs Safely, Stroke and Heart Disease, Managing Type 2 Diabetes, Symptoms of Stroke, What Is Ischemic Stroke?, What Is a TIA?, Aphasia: Improving Communication, Dysphagia: Exercises, Stroke: Taking Medicines, A1C Admission Data Admit Date/Time: 12/16/20 15:45 Attending Provider: Mirela Urrutia Admit Provider: Marielle Allen Primary Care Provider: Makenna Pichardo Other Providers: Marielle Allen ; Naty Srivastava Other Interventions: Discharge Summary Assessment (RN) Last Done: 12/18/20 10:44
== END 2020-12-18 12:10 | disposition home or self-care (01) | DRG 66 ==
LOC: ED 12:15 → 2S 15:45 → SUATTDRO 15:45 → 2S 17:48

== ENCOUNTER 2025-04-27 15:09 | Inpatient (IN) ==
--- NOTE | 2025-04-27 15:26 | Emergency Department Note ---
Impression & Plan Fracture of left hip ED Provider Note CHIEF COMPLAINT: Fall 30 minutes ago, left hip injury HISTORY OF PRESENT ILLNESS: Patient is a 75-year-old female with past medical history significant for asthma, diabetes, dyslipidemia, history of CVA, who presents to the emergency department via EMS for evaluation of a fall with left hip injury. 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 She had just used a oralia potty, came out of the bathroom, and tripped on some uneven ground and fell, landing on the left hip with immediate onset of pain. She was helped up by bystanders, and they were able to help her limp back to her tailgate. She did not strike her head or lose consciousness. She denies any other injuries. She took Tylenol, and applied ice to the left hip, but was noticing worsening pain and difficulty walking, so EMS was summoned. She points to the lateral aspect of the left hip when asked where she has pain. It does not radiate into the thigh or groin. She has no back pain. REVIEW OF SYSTEMS: Review of systems as per HPI. All other systems reviewed were negative. 10 systems reviewed. PMH: External medical records are reviewed and summarized as above/below. See Problem List. SOCIAL HISTORY: Patient lives locally with family. Retired. PHYSICAL EXAM: Vital Signs: Reviewed Nurse's notes. CONSTITUTIONAL: Pleasant, well-appearing 75-year-old female who is awake and alert and sitting semiupright on the gurney. She is in no acute distress. EYES: Pupils equal, round, reactive to light and accommodation. EOMs intact without nystagmus. Sclera are anicteric. CARDIOVASCULAR: Regular rate and rhythm. Peripheral pulses easily palpable. RESPIRATORY: Breath sounds equal and clear to auscultation. ABDOMEN: Bowel sounds are present. The abdomen is soft, nontender, nondistended. No guarding or rebound. INTEGUMENTARY: No lesions or rash, normal skin turgor. MUSCULOSKELETAL: Examination of the left lower extremity does not reveal any obvious leg length discrepancy. There is tenderness to palpation over the left greater trochanter, no groin pain. No pain over the left ASIS or PSIS or over the lumbar spinous processes. She has some mild discomfort with logroll. Further exam of the left hip was deferred due to concern for fracture. The left lower extremity is neurovascularly intact. EMERGENCY DEPARTMENT COURSE: The patient was seen and assessed as above. External medical records are reviewed. She presents to the emergency department for evaluation of left hip pain after a mechanical fall. She was offered but declined medication for discomfort. X-rays of the left hip/AP pelvis were o btained and per my interpretation consistent with a subcapital hip fracture. X-ray tech notified me of the hip fracture on x-ray, they took a chest x-ray per protocol while in the room. X-ray findings were viewed with the patient, need for hospitalization for surgical intervention was discussed. Hip fracture orders placed, including EKG and laboratory studies for medical clearance. Patient reviewed with ED casey saw operator, and consultation placed with the [facility] service for admission. Past Med/Surg History Problem List (Updated 04/27/25 @ 16:19 by Christy Leon) Fracture of left hip (Acute) Medical History H/O: stroke with residual effects HLD (hyperlipidemia) Diabetes mellitus, type II Asthma exercise induced--inhaler prn History of anesthesia reaction difficulty waking Osteoporosis Hearing deficit Surgical History History of cataract surgery bilateral History of surgery on right wrist PLATE & 9 SCREWS History of dilatation and curettage x2 History of lumbar laminectomy History of colonoscopy History of wisdom tooth extraction History of tonsillectomy History of endoscopic sinus surgery History of cardiac cath 2005--no stents Family History Aunt Family history of diabetes mellitus Uncle Family history of diabetes mellitus Father [place]'s disease Sister [place]'s disease Mother Heart disease Grandfather (Maternal) Heart disease Grandfather (Paternal) Heart disease Grandmother (Paternal) [place]'s disease Other No family history of adverse response to anesthesia Social History Smoking Status: Never smoker Second Hand Exposure: Yes (parents smoked); Do You Dip or Chew Tobacco: No; Hx Alcohol Use: Yes Alcohol type: wine Hx Substance Use: No Preferred Language: Yoruba Communication Ability: Effective Counter Former Required: No Beliefs That Will Affect Care: None Current Living Situation: Spouse Feels Safe at Home: Yes Assistive Devices: Glasses Allergies Allergies Allergy/AdvReac Type Severity Reaction Status Date / Time Sulfa (Sulfonamide Allergy Mild Rash Verified 06/01/22 12:55 Antibiotics) Home Meds Home Medications Medication Instructions Recorded Confirmed albuterol sulfate 90 mcg/actuation 1 puff inhalation Q6H PRN 04/17/19 01/04/24 aerosol inhaler (ProAir HFA) Shortness Of Breath vit C 250 mg-vit E 90 mg-zinc 40 2 tab PO DAILY 10/13/20 01/04/24 mg-copper 1 [id number] capsule (PreserVision AREDS-2) atorvastatin 80 mg tablet 80 mg PO HS 12/16/20 01/04/24 levocetirizine 5 mg tablet (Xyzal) 5 mg PO QPM PRN allergy symptoms 03/16/22 01/04/24 cholecalciferol (vitamin D3) PO 01/04/24 01/04/24 psyllium husk 0.4 gram capsule 0.4 g PO DAILY 01/04/24 01/04/24 (Metamucil) Previous Rx's Medication Instructions Recorded aspirin 81 mg tablet,delayed 81 mg PO DAILY #90 tabs 01/04/24 release gabapentin 100 mg capsule 100 mg PO DAILY #10 caps 07/03/24 Results & Data (ED) Vital Signs Vital Signs - 24 hr 04/27/25 15:15 Temperature 36.6 C Temperature Source Oral Pulse Rate 75 Respiratory Rate 16 Blood Pressure 129/70 Blood Pressure Mean 89 Pulse Oximetry 97 Oxygen Delivery Method Room Air Sepsis Recent Fever Within 48 Hours No Sepsis New/Unexplained Change in Mental Status No Sepsis Action Taken by Nursing No Action Required Home Medications Current Medication List: was personally reviewed by me Laboratory Data Attestation: I reviewed the patient's lab results. Imaging Data Attestation: I personally reviewed and interpreted this imaging study as follows: Radiologist's Impression: Hip/Pelvis X-Ray 04/27/25 15:23 INDICATION: Trauma TECHNIQUE: Frontal pelvis and 2 views of the left hip were obtained. COMPARISON: None FINDINGS: Minimally displaced acute traumatic subcapital fracture of the left femur. IMPRESSION: Minimally displaced acute traumatic subcapital fracture of the left femur. Electronically signed by Jose Angel Villanueva 04-27-2025 4:13 PM Chest X-Ray 04/27/25 16:01 EXAM: Portable AP chest radiograph TECHNIQUE: AP portable radiograph of the chest was obtained. INDICATION: Shortness of breath Comparison: Chest radiograph September 24, 2022 FINDINGS: LINES and TUBES: None CARDIOVASCULAR: Cardiac silhouette is stably and mildly enlarged. Atherosclerosis of the thoracic aorta LUNGS/PLEURA: No focal consolidation identified. Chronic interstitial lung changes. No significant pleural fluid. No discernible pneumothorax. OSSEOUS/OTHER: No displaced acute osseous process identified. IMPRESSION: No radiographic evidence of acute cardiopulmonary process. Electronically signed by RichJose Angel 04-27-2025 4:22 PM Discharge Plan Visit Data Chief Complaint: Hip Pain Stated Complaint: FALL, HIP PAIN ED Provider: Eddi Llamas ED Midlevel Provider: Christy Leon Discharge Problem: Fracture of left hip Patient Disposition: Being Evaluated by Hospitalist Condition: Fair Forms Stand Alone Forms: [facility] Prescriptions Prescriptions: No Action psyllium husk [Metamucil] 0.4 gram capsule 0.4 g PO DAILY PreserVision AREDS-2 250-90-40-1 mg Capsule 2 tab PO DAILY Patient Comments: KEEP FORGETTING TO TAKE levocetirizine [Xyzal] 5 mg tablet 5 mg PO QPM PRN (Reason: allergy symptoms) atorvastatin 40 mg tablet 40 mg PO HS escitalopram oxalate 10 mg tablet 10 mg PO DAILY montelukast 10 mg tablet 10 mg PO QPM fluticasone propionate 50 mcg/actuation spray,suspension 2 spray INTRANASAL DAILY lisinopril 2.5 mg tablet 2.5 mg PO DAILY aspirin 81 mg tablet,delayed release (DR/EC) 81 mg PO DAILY Referrals Referrals: Rosa M Renae PA-C [Primary Care Provider] -
--- NOTE | 2025-04-27 16:14 | XRay Report ---
INDICATION: Trauma TECHNIQUE: Frontal pelvis and 2 views of the left hip were obtained. COMPARISON: None FINDINGS: Minimally displaced acute traumatic subcapital fracture of the left femur. IMPRESSION: Minimally displaced acute traumatic subcapital fracture of the left femur. Electronically signed by Jose Angel Villanueva 04-27-2025 4:13 PM
--- NOTE | 2025-04-27 16:22 | XRay Report ---
EXAM: Portable AP chest radiograph TECHNIQUE: AP portable radiograph of the chest was obtained. INDICATION: Shortness of breath Comparison: Chest radiograph September 24, 2022 FINDINGS: LINES and TUBES: None CARDIOVASCULAR: Cardiac silhouette is stably and mildly enlarged. Atherosclerosis of the thoracic aorta LUNGS/PLEURA: No focal consolidation identified. Chronic interstitial lung changes. No significant pleural fluid. No discernible pneumothorax. OSSEOUS/OTHER: No displaced acute osseous process identified. IMPRESSION: No radiographic evidence of acute cardiopulmonary process. Electronically signed by Jose Angel Villanueva 04-27-2025 4:22 PM
[2025-04-27] MEDS ORDERED: MoRPHine SULFATE 2 MG/ML CARP IV PRN (16:52)
[2025-04-27 17:10] LABS: Hematocrit (blood only) 37.4 % (37.0-47.0); Hemoglobin 12.6 g/dl (12.0-16.0); Immature Granulocytes # (auto) 0.03 K/uL (0.01-0.20); Immature Granulocytes % (auto) 0.3 %; Mean Corpuscular Hemoglobin 30.7 pg (25.0-34.0); Mean Corpuscular Volume 91.0 fL (80.0-100.0); Platelet Count 246 K/uL (130-400); RDW Standard Deviation 44.5 fL (36.4-46.3); Red Blood Count 4.11 M/uL (4.20-5.40); White Blood Count 10.65 K/ul (4.8-10.8)
[2025-04-27 17:28] LABS: Alanine Aminotransferase 53.0 U/L (7-52); Albumin Globulin Ratio 1.5 (0.9-2); Albumin Level 4.1 gm/dl (3.4-5.0); Alkaline Phosphatase 107.0 U/L (34-104); Anion Gap 7.0 (3-11); Bilirubin,Total 0.3 mg/dl (0.2-1.0); Blood Urea Nitrogen 19.0 mg/dl (6-23); Calcium 9.6 mg/dl (8.6-10.3); Carbon Dioxide 28.0 mmol/L (21-32); Chloride 103.0 mmol/L (98-107); Creatinine Clr Calc Pharmacy 53.0 ml/min; Globulin 2.8 gm/dl (2.5-4.0); Glucose 123.0 mg/dl (70-99(Fasting)); Potassium 4.0 mmol/L (3.5-5.1); Sodium 138.0 mmol/L (136-145); Total Protein 6.9 gm/dl (6.0-8.3)
[2025-04-27 17:36] LABS: INR 1.1 (0.9-1.1); Partial Thromboplastin Time 25 Seconds (21-31); Prothrombin Time 11.8 Seconds (9.0-12.0)
[2025-04-27 17:45] LABS: Appearance Urine Clear (Clear); Glucose Urine UA Negative (Negative)
--- NOTE | 2025-04-27 18:28 | History & Physical Report ---
Date of Service April 27, 2025 Assessment & Plan (1) Fracture of left hip: (2) HLD (hyperlipidemia): (3) Asthma: (4) H/O: stroke with residual effects: Plan #Left hip fracture - confirmed on XR - Ortho consulted by ER, mildredal pending - pain control - keep NPO p MN - PT / OT post surgery #h/o stroke #HLD #HTN - cont aspirin (to resume after surgery), statin, lisinopril #Asthma - not in acute exacerbation - cont home meds #Anxiety - cont escitalopram #DVT ppx: SCDs, pharmacologic agent post surgery #Dispo- admit #Code status: Full code History of Present Illness Chief Complaint: Fall, hip fracture Primary Care Provider: Rosa M Renae PA-C 75 yr old F with PMHx of HLD, HTN, asthma, h/o stroke, osteoporosis, anxiety brought to ER after a mechanical fall. 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 She was helped up by bystanders but she was having severe hip pain. Thus she was brought to the ED. She denied head strike, LOC, or any prodromal symptoms. Aside from anxiety and pain, she is denying any other sympptoms. Workup revealed acute subcapital frac ture of left femur. Pt now being admitted to the hospital. Allergies Allergy/AdvReac Type Severity Reaction Status Date / Time Sulfa (Sulfonamide Allergy Mild Rash Verified 04/27/25 17:21 Antibiotics) Home Medications Medication Instructions Recorded Confirmed Type vit C 250 mg-vit E 90 mg-zinc 40 1 tab PO AMHS 10/13/20 04/27/25 History mg-copper 1 [id number] capsule (PreserVision AREDS-2) levocetirizine 5 mg tablet (Xyzal) 5 mg PO QPM 03/16/22 04/27/25 History psyllium husk 0.4 gram capsule 0.4 g PO DAILY 01/04/24 04/27/25 History (Metamucil) aspirin 81 mg tablet,delayed 81 mg PO QAM 04/27/25 04/27/25 History release atorvastatin 40 mg tablet 40 mg PO HS 04/27/25 04/27/25 History cholecalciferol (vitamin D3) 125 125 mcg PO QAM 04/27/25 04/27/25 History mcg (5,000 unit) tablet (Vitamin D3) cyclosporine 0.05 % eye drops in a 1 drp ophthalmic (eye) Q12H 04/27/25 04/27/25 History dropperette (Restasis) escitalopram oxalate 10 mg tablet 10 mg PO QAM 04/27/25 04/27/25 History fluticasone propionate 50 2 spray intranasal DAILY PRN 04/27/25 04/27/25 History mcg/actuation nasal Congestion spray,suspension lisinopril 2.5 mg tablet 2.5 mg PO QAM 04/27/25 04/27/25 History montelukast 10 mg tablet 10 mg PO QPM 04/27/25 04/27/25 History polyethylene glycol 400 0.25 % eye 1 drp ophthalmic (eye) AMHS 04/27/25 04/27/25 History drops (Blink Tears) Past Med/Surg History Problem List (Updated 04/27/25 @ 16:19 by hCristy Leon) Fracture of left hip (Acute) Medical History H/O: stroke with residual effects HLD (hyperlipidemia) Diabetes mellitus, type II Asthma exercise induced--inhaler prn History of anesthesia reaction difficulty waking Osteoporosis Hearing deficit Surgical History History of cataract surgery bilateral History of surgery on right wrist PLATE & 9 SCREWS History of dilatation and curettage x2 History of lumbar laminectomy History of colonoscopy History of wisdom tooth extraction History of tonsillectomy History of endoscopic sinus surgery History of cardiac cath 2005--no stents Family History Aunt Family history of diabetes mellitus Uncle Family history of diabetes mellitus Father [place]'s disease Sister [place]'s disease Mother Heart disease Grandfather (Maternal) Heart disease Grandfather (Paternal) Heart disease Grandmother (Paternal) [place]'s disease Other No family history of adverse response to anesthesia Social History Smoking Status: Never smoker Second Hand Exposure: Yes (parents smoked); Do You Dip or Chew Tobacco: No; Hx Alcohol Use: Yes Alcohol type: wine Hx Substance Use: No Preferred Language: Romanian Communication Ability: Effective Osteopathic Medicine Teacher Required: No Beliefs That Will Affect Care: None Current Living Situation: Spouse Feels Safe at Home: Yes Assistive Devices: Glasses Review of Systems Review of Systems: Comprehensive ROS completed and is otherwise negative. Physical Exam Physical Exam: Gen: no acute distress, lying in bed comfortable HEENT: NC/AT, MMM Lungs: nonlabored breathing, CTAB CVS: s1s2nl, RRR Abd: nl bowel sounds, soft, NT / ND : + [place] Ext: no edema Neuro: AAOx3 Psych: calm, cooperative Results & Data Results & Data Vital Signs (Past 12 Hours) Vital Signs Temp Pulse Pulse Resp BP BP Pulse Ox 04/27/25 18:00 76 25 H 142/78 H 95 04/27/25 17:36 76 04/27/25 17:30 76 18 139/73 96 04/27/25 15:15 36.6 C 75 16 129/70 97 O2 Del Method 04/27/25 18:00 04/27/25 17:36 04/27/25 17:30 Room Air 04/27/25 15:15 Room Air PG Care Time/CCT Total # of Minutes Spent Total Time Spent with Patient: Total time spent is greater than 50% in coordination of care (as documented) at patient's floor/unit and/or counseling patient: Coding Level of Care Code 97298 INT INP/OBS CARE 75MIN Diagnoses Fracture of left hip S72.002A HLD (hyperlipidemia) E78.5 Asthma J45.909 H/O: stroke with residual effects I69.30
[2025-04-27] MEDS: ONDANSETRON INJ 2 MG/ML 2 ML VIAL IV PRN (18:46)
[2025-04-27] MEDS: MoRPHine SULFATE 2 MG/ML CARP IV PRN (18:46)
[2025-04-27] MEDS ORDERED: FLUTICASONE PROPIONATE NA SPR 16 GM BTL NAE PRN (20:23)
[2025-04-27] MEDS: ARTIFICIAL TEARS OP SCH (20:38)
[2025-04-27] MEDS ORDERED: POLYETHYLENE GLYCOL OP SCH (21:00)
[2025-04-27] MEDS: ATORVASTATIN 40 MG TAB PO SCH (21:12)
[2025-04-27] MEDS: MONTELUKAST SODIUM 10 MG TABLET PO SCH (21:12)
[2025-04-27] MEDS: CETIRIZINE HCL 10 MG TABLET PO SCH (21:12)
[2025-04-28 06:40] LABS: Hematocrit (blood only) 34.7 % (37.0-47.0); Hemoglobin 11.0 g/dl (12.0-16.0); Mean Corpuscular Hemoglobin 29.2 pg (25.0-34.0); Mean Corpuscular Volume 92.0 fL (80.0-100.0); Platelet Count 211 K/uL (130-400); RDW Standard Deviation 46.6 fL (36.4-46.3); Red Blood Count 3.77 M/uL (4.20-5.40); White Blood Count 9.47 K/ul (4.8-10.8)
[2025-04-28 06:56] LABS: Anion Gap 7.0 (3-11); Blood Urea Nitrogen 13.0 mg/dl (6-23); Calcium 8.9 mg/dl (8.6-10.3); Carbon Dioxide 26.0 mmol/L (21-32); Chloride 101.0 mmol/L (98-107); Creatinine Clr Calc Pharmacy 59.4 ml/min; Glucose 188.0 mg/dl (70-99(Fasting)); Magnesium 1.8 mg/dl (1.7-2.4); Potassium 4.0 mmol/L (3.5-5.1); Sodium 134.0 mmol/L (136-145)
--- NOTE | 2025-04-28 07:39 | Orthopedic Consultation ---
Date of Service April 28, 2025 Assessment & Plan (1) Fracture of left hip: 75-year-old female admitted to hospital with left femoral neck fracture. She be taken to the OR for hemiarthroplasty of the left hip. Patient was consented has been n.p.o. since midnight in preparation for surgery. History of Present Illness Reason for Consultation: Left femoral neck fracture Requesting Physician: . Attending Physician: Jaz Frausto MD 75 yr old F with PMHx of HLD, HTN, asthma, h/o stroke, osteoporosis, anxiety brought to ER after a mechanical fall. 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 She was helped up by bystanders but she was having severe hip pain. Thus she was brought to the ED. She denied head strike, LOC, or any prodromal symptoms. Aside from anxiety and pain, she is denying any other symptoms. Workup revealed acute subcapital fract ure of left femur. She was admitted to the hospital in preparation for surgery. Overnight she was in significant pain and was not able to sleep. She looks forward to having the hip fixed. Allergies Allergy/AdvReac Type Severity Reaction Status Date / Time Sulfa (Sulfonamide Allergy Mild Rash Verified 04/27/25 17:21 Antibiotics) Home Medications Medication Instructions Recorded Confirmed Type vit C 250 mg-vit E 90 mg-zinc 40 1 tab PO AMHS 10/13/20 04/27/25 History mg-copper 1 [id number] capsule (PreserVision AREDS-2) levocetirizine 5 mg tablet (Xyzal) 5 mg PO QPM 03/16/22 04/27/25 History psyllium husk 0.4 gram capsule 0.4 g PO DAILY 01/04/24 04/27/25 History (Metamucil) aspirin 81 mg tablet,delayed 81 mg PO QAM 04/27/25 04/27/25 History release atorvastatin 40 mg tablet 40 mg PO HS 04/27/25 04/27/25 History cholecalciferol (vitamin D3) 125 125 mcg PO QAM 04/27/25 04/27/25 History mcg (5,000 unit) tablet (Vitamin D3) cyclosporine 0.05 % eye drops in a 1 drp ophthalmic (eye) Q12H 04/27/25 04/27/25 History dropperette (Restasis) escitalopram oxalate 10 mg tablet 10 mg PO QAM 04/27/25 04/27/25 History fluticasone propionate 50 2 spray intranasal DAILY PRN 04/27/25 04/27/25 History mcg/actuation nasal Congestion spray,suspension lisinopril 2.5 mg tablet 2.5 mg PO QAM 04/27/25 04/27/25 History montelukast 10 mg tablet 10 mg PO QPM 04/27/25 04/27/25 History polyethylene glycol 400 0.25 % eye 1 drp ophthalmic (eye) AMHS 04/27/25 04/27/25 History drops (Blink Tears) Past Med/Surg History Problem List (Updated 04/28/25 @ 07:37 by Jett Molina PA-C) Fracture of left hip (Acute) Medical History H/O: stroke with residual effects HLD (hyperlipidemia) Diabetes mellitus, type II Asthma exercise induced--inhaler prn History of anesthesia reaction difficulty waking Osteoporosis Hearing deficit Surgical History History of cataract surgery bilateral History of surgery on right wrist PLATE & 9 SCREWS History of dilatation and curettage x2 History of lumbar laminectomy History of colonoscopy History of wisdom tooth extraction History of tonsillectomy History of endoscopic sinus surgery History of cardiac cath 2005--no stents Family History Aunt Family history of diabetes mellitus Uncle Family history of diabetes mellitus Father [place]'s disease Sister [place]'s disease Mother Heart disease Grandfather (Maternal) Heart disease Grandfather (Paternal) Heart disease Grandmother (Paternal) [place]'s disease Other No family history of adverse response to anesthesia Social History Smoking Status: Never smoker Second Hand Exposure: Yes (parents smoked); Do You Dip or Chew Tobacco: No; Hx Alcohol Use: Yes Alcohol type: wine Hx Substance Use: No Preferred Language: Greenlandic Communication Ability: Effective Developer Programmer Required: Yes Beliefs That Will Affect Care: None Current Living Situation: Spouse Current Living Situation Comment: lives at home with in one story house Feels Safe at Home: Yes Assistive Devices: Glasses and Hearing Aid - Bilateral Review of Systems All systems reviewed & are unremarkable except as noted in HPI & below. Physical Exam 75-year-old female examined while reclining in hospital bed. Minor soft tissue swelling over the left hip. Tenderness to palpation over the greater trochanter. Left lower extremity is neurovascularly intact with strong pedal pulses and brisk cap refill. Further examination not conducted secondary to pain. Results & Data Results & Data Laboratory Results 04/28/25 04/27/25 04/27/25 06:08 20:31 17:28 WBC 9.47 RBC 3.77 L Hgb 11.0 L Hct 34.7 L MCV 92.0 MCH 29.2 MCHC 31.7 L RDW Std Deviation 46.6 H RDW Coeff of [place] 13.5 Plt Count 211 MPV 10.1 Immature Gran % (Auto) Neut % (Auto) Lymph % (Auto) [place] % (Auto) Eos % (Auto) Baso % (Auto) Neut # (Auto) Lymph # (Auto) [place] # (Auto) Eos # (Auto) Baso # (Auto) Immature Gran # (Auto) PT INR APTT PTT Ratio Sodium 134 L Potassium 4.0 Chloride 101 Carbon Dioxide 26 Anion Gap 7 BUN 13 Creatinine 0.67 Est Cr Clr Drug Dosing 59.4 eGFR 92.23 BUN/Creatinine Ratio 19.4 Glucose 188 H POC Glucose 120 H Calcium 8.9 Phosphorus 3.0 Magnesium 1.8 Total Bilirubin AST ALT Alkaline Phosphatase Total Protein Albumin Globulin Albumin/Globulin Ratio Urine Color Yellow Urine Appearance Clear Urine pH 7.0 Ur Specific [place] 1.018 Urine Protein Negative Urine Glucose (UA) Negative Urine Ketones Negative Urine Blood Negative Urine Nitrite Negative Urine Bilirubin Negative Urine Urobilinogen Negative Ur Leukocyte Esterase Negative Urine Comment 04/27/25 16:44 WBC 10.65 RBC 4.11 L Hgb 12.6 Hct 37.4 MCV 91.0 MCH 30.7 MCHC 33.7 RDW Std Deviation 44.5 RDW Coeff of [place] 13.3 Plt Count 246 MPV 9.9 Immature Gran % (Auto) 0.3 Neut % (Auto) 76.8 Lymph % (Auto) 16.5 [place] % (Auto) 4.9 Eos % (Auto) 1.1 Baso % (Auto) 0.4 Neut # (Auto) 8.18 H Lymph # (Auto) 1.76 [place] # (Auto) 0.52 Eos # (Auto) 0.12 Baso # (Auto) 0.04 Immature Gran # (Auto) 0.03 PT 11.8 INR 1.1 APTT 25 PTT Ratio 0.9 Sodium 138 Potassium 4.0 Chloride 103 Carbon Dioxide 28 Anion Gap 7 BUN 19 Creatinine 0.85 Est Cr Clr Drug Dosing 53.0 eGFR 72.30 BUN/Creatinine Ratio 22.4 H Glucose 123 H POC Glucose Calcium 9.6 Phosphorus Magnesium Total Bilirubin 0.3 AST 39 ALT 53 H Alkaline Phosphatase 107 H Total Protein 6.9 Albumin 4.1 Globulin 2.8 Albumin/Globulin Ratio 1.5 Urine Color Urine Appearance Urine pH Ur Specific [place] Urine Protein Urine Glucose (UA) Urine Ketones Urine Blood Urine Nitrite Urine Bilirubin Urine Urobilinogen Ur Leukocyte Esterase Urine Comment Diagnostic Findings Hip/Pelvis X-Ray 04/27/25 15:23 INDICATION: Trauma TECHNIQUE: Frontal pelvis and 2 views of the left hip were obtained. COMPARISON: None FINDINGS: Minimally displaced acute traumatic subcapital fracture of the left femur. IMPRESSION: Minimally displaced acute traumatic subcapital fracture of the left femur. Electronically signed by Jose Angel Villanueva 04-27-2025 4:13 PM Chest X-Ray 04/27/25 16:01 EXAM: Portable AP chest radiograph TECHNIQUE: AP portable radiograph of the chest was obtained. INDICATION: Shortness of breath Comparison: Chest radiograph September 24, 2022 FINDINGS: LINES and TUBES: None CARDIOVASCULAR: Cardiac silhouette is stably and mildly enlarged. Atherosclerosis of the thoracic aorta LUNGS/PLEURA: No focal consolidation identified. Chronic interstitial lung changes. No significant pleural fluid. No discernible pneumothorax. OSSEOUS/OTHER: No displaced acute osseous process identified. IMPRESSION: No radiographic evidence of acute cardiopulmonary process. Electronically signed by Jose Angel Villanueva 04-27-2025 4:22 PM PG Care Time/CCT Total # of Minutes Spent Total Time Spent with Patient: Total time spent is greater than 50% in coordination of care (as documented) at patient's floor/unit and/or counseling patient: [place] [address] IN/OBS CONSULT LVL 5,80M Patient Type New Medical Decision Making Moderate Complexity Diagnoses Closed fracture of left hip, initial encounter S72.002A Encounter type: initial encounter Fracture type: closed (1) Fracture of left hip Encounter type: initial encounter Fracture type: closed Qualified Code(s): S72.002A - Fracture of unspecified part of neck of left femur, initial encounter for closed fracture
[2025-04-28] MEDS ORDERED: BUPIVACAINE 0.5 % 5 MG/1 ML PF 10ML VIAL ONE (07:43)
--- NOTE | 2025-04-28 08:22 | History & Physical Bridge Note ---
Date of Service April 28, 2025 History & Physical Bridge Note I have examined the patient, reviewed the History & Physical and in the interval since the performance of the History & Physical I have noted the following changes of clinical significance: no changes noted
[2025-04-28] MEDS ORDERED: MEPERIDINE HCL 25 MG/ML CARP/VIAL IV PRN (09:34)
[2025-04-28] MEDS ORDERED: ATROPINE SULFATE 0.1 MG/ML 10ML SYR IV PRN (09:34)
[2025-04-28] MEDS ORDERED: ALBUTEROL 0.083% NEBU SOLN 3 ML VIAL INH PRN (09:34)
[2025-04-28] MEDS ORDERED: HYDROmorphone INJ 1 MG/ML SYRINGE IV PRN (09:34)
--- NOTE | 2025-04-28 09:34 | Anesthesiology Consultation ---
Date of Service April 28, 2025 Assessment & Plan Chart Review Chart Review: Acceptable Risk for Surgery ASA [id number] Proposed Anesthesia Anesthesia Type: MAC Spinal Risk / Benefits Reviewed With: PT / POA / Parent / Guardian, Accepts Plan and Informed Consent Obtained History Surgery Operation Date: 04/28/25 10:00 Proposed Procedures p Bipolar Hip Arthroplasty Anterior Jacob - Carlito Orr, Height/Weight Height: 5 ft 5 in Weight: 50.349 kg Allergies Allergy/AdvReac Type Severity Reaction Status Date / Time Sulfa (Sulfonamide Allergy Mild Rash Verified 04/27/25 17:21 Antibiotics) Medications Home Medications Medication Instructions Recorded Confirmed Last Taken vit C 250 mg-vit E 90 mg-zinc 40 1 tab PO AMHS 10/13/20 04/27/25 04/27/25 mg-copper 1 zw-[id number] am capsule (PreserVision AREDS-2) levocetirizine 5 mg tablet (Xyzal) 5 mg PO QPM 03/16/22 04/27/25 04/26/25 psyllium husk 0.4 gram capsule 0.4 g PO DAILY 01/04/24 04/27/25 04/27/25 (Metamucil) aspirin 81 mg tablet,delayed 81 mg PO QAM 04/27/25 04/27/25 04/27/25 release atorvastatin 40 mg tablet 40 mg PO HS 04/27/25 04/27/25 04/26/25 cholecalciferol (vitamin D3) 125 125 mcg PO QAM 04/27/25 04/27/25 04/27/25 mcg (5,000 unit) tablet (Vitamin D3) cyclosporine 0.05 % eye drops in a 1 drp ophthalmic (eye) Q12H 04/27/25 04/27/25 04/27/25 dropperette (Restasis) am escitalopram oxalate 10 mg tablet 10 mg PO QAM 04/27/25 04/27/25 04/27/25 fluticasone propionate 50 2 spray intranasal DAILY PRN 04/27/25 04/27/25 Unknown mcg/actuation nasal Congestion spray,suspension lisinopril 2.5 mg tablet 2.5 mg PO QAM 04/27/25 04/27/25 04/27/25 montelukast 10 mg tablet 10 mg PO QPM 10/06/1104/27/25 04/26/25 polyethylene glycol 400 0.25 % eye 1 drp ophthalmic (eye) AMHS 04/27/25 04/27/25 04/27/25 drops (Blink Tears) Active Medications Generic Name Dose Route Start Last Admin Trade Name Freq PRN Reason Stop Dose Admin Artificial Tears 1 drops 04/27/25 20:30 04/28/25 09:36 Artificial Tears OP 05/27/25 20:29 1 drops Q12H SUNIL Administration Atorvastatin Calcium 40 mg 04/27/25 21:00 04/27/25 21:12 Atorvastatin 40 Mg Tab PO 05/27/25 20:59 40 mg HS SUNIL Administration Cetirizine HCl 10 mg 04/27/25 21:00 04/27/25 21:12 Cetirizine Hcl 10 Mg Tablet PO 05/27/25 20:59 10 mg QPM SUNIL Administration Montelukast Sodium 10 mg 04/27/25 21:00 04/27/25 21:12 Montelukast Sodium 10 Mg Tablet PO 05/27/25 20:59 10 mg QPM SUNIL Administration Morphine Sulfate 2 mg 04/27/25 18:11 04/28/25 09:36 Morphine Sulfate 2 Mg/Ml Carp IV 05/11/25 18:10 2 mg Q6H PRN Administration Breakthrough Pain Ondansetron HCl 4 mg 04/27/25 16:52 04/27/25 18:46 Ondansetron Inj 2 Mg/Ml 2 Ml Vial IV 05/27/25 16:51 4 mg Q6H PRN Administration Nausea And Vomiting Oxycodone HCl 5 mg 04/27/25 18:11 04/28/25 02:51 Oxycodone Hcl Ir 5 Mg Tab (Immediate Release) PO 05/11/25 18:10 5 mg Q4H PRN Administration Mod-Sev Pain (Scale 4-10) NPO Date Last Intake of Fluids: 04/27/25 Time Last Intake of Fluids: 20:00 Date Last Intake of Solids: 04/27/25 Time Last Intake of Solids: 20:00 Past Medical History Medical History (Updated 04/28/25 @ 11:34 by Anel Nguyen DO) HTN (hypertension) Anxiety H/O: stroke with residual effects Left sided weakness and slurred speech slowed HLD (hyperlipidemia) Diabetes mellitus, type II Asthma exercise induced--inhaler prn History of anesthesia reaction difficulty waking Osteoporosis Hearing deficit Exercise / Class Metabolic Activity II 4-5 Yardwork/Stairs/Walk up hill Past Family History Family History Aunt Family history of diabetes mellitus Uncle Family history of diabetes mellitus Father Gordon's disease Sister Gordon's disease Mother Heart disease Grandfather (Maternal) Heart disease Grandfather (Paternal) Heart disease Grandmother (Paternal) Gordon's disease Other No family history of adverse response to anesthesia Past Surgical History Surgical History History of cataract surgery bilateral History of surgery on right wrist PLATE & 9 SCREWS History of dilatation and curettage x2 History of lumbar laminectomy History of colonoscopy History of wisdom tooth extraction History of tonsillectomy History of endoscopic sinus surgery History of cardiac cath 2005--no stents Past Anesthesia History No Hx of Anesthesia Complications and No Family Hx of Anesthesia Complications History of PONV No Hx of Motion Sickness and History of PONV Social History Smoking Status: Never smoker Do You Dip or Chew Tobacco: No Hx Alcohol Use: Yes Alcohol type: wine alcohol intake frequency: holidays/special occasions only Hx Substance Use: No substance use type: does not use Physical Exam Vital Signs Last Vital Signs Temp 36.7 C 04/28/25 08:00 Pulse 65 04/28/25 08:00 Resp 16 04/28/25 08:00 BP 107/58 L 04/28/25 08:00 Pulse Ox 88 L 04/28/25 08:00 O2 Del Method Room Air 04/28/25 08:00 O2 Flow Rate 2 04/27/25 20:20 ENMT Mouth: no TMJ abnormality Thyromental Distance: > or= 3.5 Finger Breadths Mallampati Class: II Neck normal visual inspection and trachea midline; neck extension not limited Respiratory normal respiratory effort Auscultation: lungs clear to auscultation bilaterally Cardiovascular Rate/Rhythm: regular rate and regular rhythm Heart Sounds: no murmur Musculoskeletal Spine: normal cervical ROM Extremities: full ROM of extremities Neurologic moves all extremities Psychiatric Orientation: alert and oriented x 3 Testing Laboratory Results 04/28/25 06:08 04/28/25 06:08 PT 11.8 Seconds (9.0-12.0) 04/27/25 16:44 INR 1.1 (0.9-1.1) 04/27/25 16:44 APTT 25 Seconds (21-31) 04/27/25 16:44 Urine Color Yellow 04/27/25 17:28 Urine Appearance Clear (Clear) 04/27/25 17: Urine pH 7.0 (4.5-7.5) 04/27/25 17: Ur Specific Hume 1.018 (1.000-1.030) 04/27/25 17: Urine Protein Negative (Negative) 04/27/25 17: Urine Glucose (UA) Negative (Negative) 04/27/25 17: Urine Ketones Negative (Negative) 04/27/25: Urine Nitrite Negative (Negative) 04/27/25 17: Ur Leukocyte Esterase Negative (Negative) 04/27/25 17:28 04/28/25 09:54 POC Glucose 128 H Electrocardiogram Date: 04/27/25 Findings: + NSR @ (68bpm) low voltage, age indetermined septal infarct Chest X-Ray Date: 04/27/25 Findings: + NAD Echocardiogram Date: 12/18/20 EF: 60-65% LV Function: normal RWMA: + none Other Findings: + LVH (mild) and + diastolic dysfunction (gr1) Valvular Disease: + no significant valvular disease
[2025-04-28] MEDS ORDERED: MIDAZOLAM HCL 1 MG/ML 2ML VIAL ONE (10:11)
[2025-04-28] MEDS ORDERED: LIDOCAINE 2% 2 ML VIAL/AMP(20MG/ML) INFIL ONE (10:23)
[2025-04-28] MEDS ORDERED: PROPOFOL IV EMULSION 10 MG/ML 20 ML VIAL IV ONE ×3 (10:23→13:25)
[2025-04-28] MEDS ORDERED: ONDANSETRON INJ 2 MG/ML 2 ML VIAL ONE (10:23)
[2025-04-28] MEDS ORDERED: PHENYLEPHRINE 100MCG/ML 5ML SYR ONE ×2 (11:58→12:50)
[2025-04-28] MEDS: TRANEXAMIC ACID / 0.7% NACL 1000MG/100ML BAG IV ONE (12:21)
[2025-04-28] MEDS ORDERED: PHENYLEPHRINE HCL 10 MG/ML VIAL ONE (13:10)
[2025-04-28] MEDS: TRANEXAMIC ACID 100 MG/ML 10 ML VIAL IV ONE (13:18)
--- NOTE | 2025-04-28 13:34 | Operative Report ---
PG Post Operative Report Pre & Post Diagnosis Operation Date: 04/28/25 10:00 Pre-Op Diagnosis: Displaced left femoral neck fracture Post-Op Diagnosis: Displaced left femoral neck fracture I identified the patient and participated in the time-out.: Yes Procedure Operation Date: 04/28/25 10:00 Actual Procedures p Left Cemented Anterior Hip hemiarthroplasty (Left) - Carlito Orr DO Surgeon Carlito Orr DO Early Morning Alvarez Molina PA-C Estimated Blood Loss 200 Findings Consistent with Post-Op Diagnosis Specimens Left femoral head Description of Procedure On April 28, 2025 Torrie was brought down from her hospital room to the preoperative holding area. The operative extremity identified and signed. She was given a preoperative antibiotic and a spinal anesthetic. She was taken back the operating room and laid on the table in supine position. She is given basic sedation. The left leg was then brought out to a Purist leg positioner. The left hip was then prepped and draped sterile fashion. A timeout was done. The patient and the operative extremity was properly identified. An anterior approach was used. Take down through the fascia. The rectus was retracted anteriorly and the vastus was retracted laterally. The circumflex vessels were ligated. The capsule was exposed. The capsule was then incised and tagged for later repair. A femoral neck cut was made and then the head and neck were removed. The acetabulum was then exposed. Time was spent removing any incarcerated ligamentum or labrum from inside the acetabulum. Several head trials were used and a size 45 seem to be the best fit. The proximal femur was then exposed. Sequential broaching up to a size 11 broach was done. A 28 mm h ead with a 0 neck was then placed and a 45 mm shell was placed over that. The hip was then reduced. Fluoroscopic images showed near anatomic alignment and good stability. The hip was then dislocated. The final size 9 mm Osman echo stem was then cemented into place. Once cement had hardened, a 28 mm head with a +0 neck was then snapped into a 45 mm shell. The head and shell assembly was then impacted onto the femoral stem. The hip was then reduced. Final fluoroscopic images showed anatomic reduction of the hip. The surgical site was then irrigated. The capsule was closed with #1 Vicryl. The fascia was closed with #0 PDS suture. Skin was closed with 2-0 Vicryl, 3-0 Vicryl, and zip ties. A Silverlon dressing was placed. She was then transferred back to a hospital bed and taken to the postanesthesia care unit in stable condition. She tolerated the procedure well. Alvarez Molina PA-C, was present for the entire procedure. He was critical for patient positioning, prepping, draping, retraction exposure, wound closure and application of sterile dressing. I attest to the content of the Intraoperative Record and any orders documented therein. Any exceptions are noted below.
--- NOTE | 2025-04-28 14:36 | XRay Report ---
HISTORY: Left hip arthroplasty. TECHNIQUE: AP radiograph of the left hip. COMPARISON: Pelvis and left hip radiographs on 04/27/2025. FINDINGS: Newly placed left hip arthroplasty in appropriate alignment. No periprosthetic lucency or fractures identified. Intra-articular and soft tissue gas is likely postsurgical. Lateral soft tissue swelling. Visible pelvis appears intact. IMPRESSION: Expected postoperative appearance following left hip arthroplasty. Electronically signed by Seth Bernard 04-28-2025 2:36 PM
[2025-04-28] MEDS: ONDANSETRON INJ 2 MG/ML 2 ML VIAL IV PRN (14:48)
--- NOTE | 2025-04-28 15:45 | Anesthesiology Progress Note ---
Date of Service April 28, 2025 Anesthesia Post Procedure Vital Signs Vital Signs: Temp Pulse Pulse Pulse Resp BP BP 04/28/25 15:30 76 18 129/69 04/28/25 15:20 74 14 123/80 04/28/25 15:10 37.4 C 70 13 135/68 04/28/25 15:00 68 16 124/63 04/28/25 14:50 71 17 137/69 04/28/25 14:40 66 17 117/69 04/28/25 14:30 69 21 118/79 04/28/25 14:20 65 17 126/70 04/28/25 14:10 69 21 94/50 L 04/28/25 14:00 77 20 118/71 04/28/25 13:50 37.1 C 70 14 111/61 04/28/25 08:00 36.7 C 65 16 04/27/25 23:07 37.0 C 73 16 04/27/25 20:20 37.2 C 73 18 04/27/25 19:40 36.6 C 75 19 137/65 04/27/25 19:00 73 18 04/27/25 18:59 04/27/25 18:00 76 25 H 142/78 H 04/27/25 17:36 76 04/27/25 17:30 76 18 BP Pulse Ox O2 Del Method O2 Flow Rate 04/28/25 15:30 98 Nasal Cannula 3 04/28/25 15:20 97 Nasal Cannula 3 04/28/25 15:10 100 Nasal Cannula 3 04/28/25 15:00 99 Nasal Cannula 3 04/28/25 14:50 100 Nasal Cannula 3 04/28/25 14:40 100 Nasal Cannula 3 04/28/25 14:30 96 Nasal Cannula 3 04/28/25 14:20 100 Nasal Cannula 3 04/28/25 14:10 100 Nasal Cannula 3 04/28/25 14:00 100 Nasal Cannula 3 04/28/25 13:50 98 Oxymask 5 04/28/25 08:00 107/58 L 88 L Room Air 04/27/25 23:07 117/68 95 Room Air 04/27/25 20:20 130/85 100 Nasal Cannula 2 04/27/25 19:40 98 Nasal Cannula 2 04/27/25 19:00 141/80 H 100 Nasal Cannula 2 04/27/25 18:59 88 L Nasal Cannula 0 04/27/25 18:00 95 04/27/25 17:36 04/27/25 17:30 139/73 96 Room Air Pain Intensity Left Hip: Pain Intensity: 8 Left Ribs: Pain Intensity: 4 Notes Mental Status: alert / awake / arousable Patient Amnestic to Procedure: Yes Nausea / Vomiting: adequately controlled Pain: adequately controlled Airway Patency, RR, SpO2: stable & adequate BP & HR: stable & adequate Hydration State: stable & adequate Neuraxial Anesthesia: was administered and sensory block is resolving Anesthetic Complications: no major complications apparent
--- NOTE | 2025-04-28 16:32 | Hospitalist Progress Note ---
Date of Service April 28, 2025 Assessment & Plan (1) Fracture of left hip: (2) HLD (hyperlipidemia): (3) Asthma: (4) H/O: stroke with residual effects: Plan #Left hip fracture - confirmed on XR - Ortho recs appreciated, pt s/p left cemented anterior hip hemiarthroplasty on 04/28/25 - pain control - keep NPO p MN - PT / OT post surgery #h/o stroke #HLD #HTN - cont aspirin (to resume after surgery), statin, lisinopril #Asthma - not in acute exacerbation - cont home meds #Anxiety - cont escitalopram #DVT ppx: SCDs, pharmacologic agent post surgery #Dispo- pending PT / OT eval #Code status: Full code 04/27: pt's at bedside 04/28: pt's at bedside Admission and Anticipated Discharge Date Admission Date: April 27, 2025 Subjective No acute events overnight Sleepy this morning Saw briefly prior to pt being taken away to OR Review of Systems Review of Systems: Comprehensive ROS completed and is otherwise negative. Physical Exam Physical Exam: Gen: no acute distress, lying in bed comfortable HEENT: NC/AT, MMM Lungs: nonlabored breathing, CTAB CVS: s1s2nl, RRR Abd: nl bowel sounds, soft, NT / ND : + [place] Ext: no edema Neuro: awake but sleepy Psych: calm, cooperative Results & Data Results & Data Vital Signs (Past 12 Hours) Vital Signs Temp Pulse Pulse Resp BP BP Pulse Ox 04/28/25 16:00 37.6 C H 81 18 119/68 99 04/28/25 15:50 74 20 137/70 100 04/28/25 15:40 69 17 129/64 99 04/28/25 15:30 76 18 129/69 98 04/28/25 15:20 74 14 123/80 97 04/28/25 15:10 37.4 C 70 13 135/68 100 04/28/25 15:00 68 16 124/63 99 04/28/25 14:50 71 17 137/69 100 04/28/25 14:40 66 17 117/69 100 04/28/25 14:30 69 21 118/79 96 04/28/25 14:20 65 17 126/70 100 04/28/25 14:10 69 21 94/50 L 100 04/28/25 14:00 77 20 118/71 100 04/28/25 13:50 37.1 C 70 14 111/61 98 04/28/25 08:00 36.7 C 65 16 107/58 L 88 L O2 Del Method O2 Flow Rate 04/28/25 16:00 Nasal Cannula 3 04/28/25 15:50 Nasal Cannula 3 04/28/25 15:40 Nasal Cannula 3 04/28/25 15:30 Nasal Cannula 3 04/28/25 15:20 Nasal Cannula 3 04/28/25 15:10 Nasal Cannula 3 04/28/25 15:00 Nasal Cannula 3 04/28/25 14:50 Nasal Cannula 3 04/28/25 14:40 Nasal Cannula 3 04/28/25 14:30 Nasal Cannula 3 04/28/25 14:20 Nasal Cannula 3 04/28/25 14:10 Nasal Cannula 3 04/28/25 14:00 Nasal Cannula 3 04/28/25 13:50 Oxymask 5 04/28/25 08:00 Room Air PG Care Time/CCT Total # of Minutes Spent Total Time Spent with Patient: Total time spent is greater than 50% in coordination of care (as documented) at patient's floor/unit and/or counseling patient: Coding Level of Care Code 13639 SUB INP/OBS CARE 2/35MIN Diagnoses Closed fracture of left hip, initial encounter S72.002A Encounter type: initial encounter Fracture type: closed HLD (hyperlipidemia) E78.5 Asthma J45.909 H/O: stroke with residual effects I69.30 (1) Fracture of left hip Encounter type: initial encounter Fracture type: closed Qualified Code(s): S72.002A - Fracture of unspecified part of neck of left femur, initial encounter for closed fracture
[2025-04-28] MEDS: DOCUSATE SODIUM/SENNA 50/8.6MG TAB PO SCH (16:57)
[2025-04-28] MEDS: ESCITALOPRAM OXALATE 10 MG TAB PO SCH (16:58)
[2025-04-28] MEDS: CHOLECALCIFEROL 125 MCG (5,000 UNITS) TAB PO SCH (16:58)
[2025-04-28] MEDS: ACETAMINOPHEN 325 MG TAB PO PRN (18:36)
--- NOTE | 2025-04-28 19:48 | Electrocardiogram Report ---
Test Reason : Blood Pressure : */* mmHG Vent. Rate : 68 BPM Atrial Rate : 68 BPM P-R Int : 154 ms QRS Dur : 82 ms QT Int : 392 ms P-R-T Axes : 43 30 18 degrees QTcB Int : 416 ms Normal sinus rhythm Low voltage QRS Cannot rule out Septal infarct , age undetermined Nonspecific T wave abnormality Abnormal ECG When compared with ECG of 02-Oct-2023 18:08, No significant change was found Confirmed by Perfecto Swanson ([id number]) on 04/28/2025 7:48:33 PM Referred By: REFERRED SELF Confirmed By: Perfecto Swanson
[2025-04-28] MEDS: CYCLOBENZAPRINE HCL 10 MG TAB PO STA (20:04)
[2025-04-28] MEDS: ASPIRIN 81 MG ECTAB PO SCH (20:05)
[2025-04-29 06:58] LABS: Hematocrit (blood only) 30.1 % (37.0-47.0); Hemoglobin 10.1 g/dl (12.0-16.0); Immature Granulocytes # (auto) 0.02 K/uL (0.01-0.20); Immature Granulocytes % (auto) 0.2 %; Mean Corpuscular Hemoglobin 30.7 pg (25.0-34.0); Mean Corpuscular Volume 91.5 fL (80.0-100.0); Platelet Count 153 K/uL (130-400); RDW Standard Deviation 45.4 fL (36.4-46.3); Red Blood Count 3.29 M/uL (4.20-5.40); White Blood Count 9.11 K/ul (4.8-10.8)
[2025-04-29 07:19] LABS: Anion Gap 4.0 (3-11); Blood Urea Nitrogen 9.0 mg/dl (6-23); Calcium 8.4 mg/dl (8.6-10.3); Carbon Dioxide 29.0 mmol/L (21-32); Chloride 100.0 mmol/L (98-107); Creatinine Clr Calc Pharmacy 60.3 ml/min; Glucose 155.0 mg/dl (70-99(Fasting)); Magnesium 1.6 mg/dl (1.7-2.4); Potassium 3.9 mmol/L (3.5-5.1); Sodium 133.0 mmol/L (136-145)
[2025-04-29] MEDS ORDERED: ACETAMINOPHEN 500 MG TAB PO PRN (07:33)
--- NOTE | 2025-04-29 07:33 | Hospitalist Progress Note ---
Date of Service April 29, 2025 Assessment & Plan (1) Fracture of left hip: (2) HLD (hyperlipidemia): (3) Asthma: (4) H/O: stroke with residual effects: Plan 75 yr old F with PMHx of HLD, HTN, asthma, h/o stroke, osteoporosis, anxiety brought to ER after a mechanical fall. #Left hip fracture - confirmed on XR - Ortho recs appreciated, pt s/p left cemented anterior hip hemiarthroplasty on 04/28/25 - pain control: tylenol q6h scheduled with q6h prn, cont prn oxycodone PO and prn IV morphine - PT / OT post surgery #h/o stroke #HLD #HTN - cont aspirin (to resume after surgery), statin, lisinopril #Asthma - not in acute exacerbation - cont home meds #Anxiety - cont escitalopram #DVT ppx: SCDs, pharmacologic agent post surgery #Dispo- pending PT / OT eval #Code status: Full code 04/27: pt's at bedside 04/28: pt's at bedside Admission and Anticipated Discharge Date Admission Date: April 27, 2025 Subjective Remains sleepy this morning, which is worsened with morphine Review of Systems Review of Systems: Comprehensive ROS completed and is otherwise negative. Physical Exam Physical Exam: Gen: no acute distress, lying in bed comfortable HEENT: NC/AT, MMM Lungs: nonlabored breathing, CTAB CVS: s1s2nl, RRR Abd: nl bowel sounds, soft, NT / ND : + [place] Ext: no edema Neuro: awake but sleepy Psych: calm, cooperative Results & Data Results & Data Vital Signs (Past 12 Hours) Vital Signs Temp Pulse Resp BP Pulse Ox O2 Del Method O2 Flow Rate 04/29/25 07:20 37.2 C 79 20 130/75 98 Nasal Cannula 3 04/29/25 04:59 37.5 C 76 16 124/72 97 Room Air 04/28/25 22:58 37.1 C 75 14 109/66 97 Nasal Cannula 3 04/28/25 20:20 Nasal Cannula 2 04/28/25 19:36 38 C H 82 16 113/70 95 Nasal Cannula 3 PG Care Time/CCT Total # of Minutes Spent Total Time Spent with Patient: Total time spent is greater than 50% in coordination of care (as documented) at patient's floor/unit and/or counseling patient: Coding Level of Care Code 39278 SUB INP/OBS CARE MIN Diagnoses Closed fracture of left hip, initial encounter S72.002A Encounter type: initial encounter Fracture type: closed HLD (hyperlipidemia) E78.5 Asthma J45.909 H/O: stroke with residual effects I69.30 (1) Fracture of left hip Encounter type: initial encounter Fracture type: closed Qualified Code(s): S72.002A - Fracture of unspecified part of neck of left femur, initial encounter for closed fracture
--- NOTE | 2025-04-29 08:55 | Orthopedic Progress Note ---
Date of Service April 29, 2025 Assessment & Plan (1) Fracture of left hip: * Continue Current Treatment * S/p left hip hemiarthroplasty * Weight bearing status: WBAT, nutter up precautions * Daily treatment: Physical Therapy/ Occupational Therapy per protocol * Pain control * Continue to monitor for ABLA * DVT prophylaxis, ok to resume from ortho standpoint * Disposition: TBD * Office/hospital f/u 2 weeks for progress check and staple/suture removal * Remainder care per primary team Subjective .Active Problems: S/p left hip hemiarthroplasty POD 1 75 y/o female s/p left hip hemiarthroplasty. Doing well overall, pain managed and improved function. Denies fever/chills, chest pain/SOB, nausea/vomiting. Otherwise no complaints. Review of Systems All systems reviewed & are unremarkable except as noted in HPI & below. Physical Exam . * General: Alert and oriented, no acute distress * Constitutional: well-developed, well-nourished. * Respiratory: Normal respiratory effort, no distress * Gastrointestinal: No tenderness to palpation, no rigidity or guarding. * Skin: No rash or lesion. * Neurologic: Grossly normal * Musculoskeletal: Left hip surgical dressing CDI, not removed for exam. Otherwise no obvious deformity or overlying skin changes. Diffuse TTP proximal thigh and hip region. Otherwise no specific tenderness of distal thigh, lower leg, foot/ankle. AROM hip flexion intact. AROM foot/ankle intact. Sensation intact plantar/dorsal foot. Brisk capillary refill. Results & Data Results & Data Laboratory Results . Diagnostic Findings . Hip X-Ray 04/28/25 13:53 HISTORY: Left hip arthroplasty. TECHNIQUE: AP radiograph of the left hip. COMPARISON: Pelvis and left hip radiographs on 04/27/2025. FINDINGS: Newly placed left hip arthroplasty in appropriate alignment. No periprosthetic lucency or fractures identified. Intra-articular and soft tissue gas is likely postsurgical. Lateral soft tissue swelling. Visible pelvis appears intact. IMPRESSION: Expected postoperative appearance following left hip arthroplasty. Electronically signed by Seth Bernard 04-28-2025 2:36 PM PG Care Time/CCT Total # of Minutes Spent Total Time Spent with Patient: Total time spent is greater than 50% in coordination of care (as documented) at patient's floor/unit and/or counseling patient: Coding Level of Care Code 02132 Post Operative Follow-Up Diagnoses Closed fracture of left hip, initial encounter S72.002A Encounter type: initial encounter Fracture type: closed (1) Fracture of left hip Encounter type: initial encounter Fracture type: closed Qualified Code(s): S72.002A - Fracture of unspecified part of neck of left femur, initial encounter for closed fracture
[2025-04-29] MEDS ORDERED: ASPIRIN 81 MG ECTAB PO SCH (09:00)
[2025-04-29] MEDS: ACETAMINOPHEN 500 MG TAB PO SCH (09:02)
[2025-04-29] MEDS: MoRPHine SULFATE 4 MG/ML 1 ML CARP\\VIAL ONE (09:10)
--- NOTE | 2025-04-29 09:42 | Fluoroscopy Report ---
FL hip LT 1V CLINICAL HISTORY: LT LJ COMPARISON STUDY: 04/27/2025 FLUOROSCOPY TIME: 9 seconds FLUOROSCOPY IMAGES: 1 EXPOSURE DOSE: 0.6 mGy FINDINGS: Fluoroscopy was provided for left hip prosthesis. IMPRESSION: Intraoperative fluoroscopy. ACT 112: Negative or not required by law. Electronically signed by: Reuben Wesley M.D. 04/29/2025 9:40 AM
[2025-04-29 10:31] LABS: Prealbumin 14.7 mg/dl (20-40)
[2025-04-29] MEDS: MoRPHine SULFATE 4 MG/ML 1 ML CARP\\VIAL IV PRN (21:29)
--- NOTE | 2025-04-30 09:01 | Orthopedic Progress Note ---
Date of Service April 30, 2025 Assessment & Plan (1) Fracture of left hip: * Continue Current Treatment * S/p left hip hemiarthroplasty * Weight bearing status: WBAT, customs officer precautions * Daily treatment: Physical Therapy/ Occupational Therapy per protocol * Pain control * Continue to monitor for ABLA * DVT prophylaxis, ok to resume from ortho standpoint * Disposition: TBD * Office/hospital f/u 2 weeks for progress check and staple/suture removal * Remainder care per primary team Subjective Active Problems: S/p left hip hemiarthroplasty POD 2 75 y/o female s/p left hip hemiarthroplasty. Doing well overall, pain managed and improved function. Denies fever/chills, chest pain/SOB, nausea/vomiting. Otherwise no complaints. Review of Systems All systems reviewed & are unremarkable except as noted in HPI & below. Physical Exam * Musculoskeletal: Left hip surgical dressing CDI, not removed for exam. Otherwise no obvious deformity or overlying skin changes. Diffuse TTP proximal thigh and hip region. Otherwise no specific tenderness of distal thigh, lower leg, foot/ankle. AROM hip flexion intact. AROM foot/ankle intact. Sensation intact plantar/dorsal foot. Brisk capillary refill. Results & Data Results & Data Laboratory Results . Diagnostic Findings . PG Care Time/CCT Total # of Minutes Spent Total Time Spent with Patient: Total time spent is greater than 50% in coordination of care (as documented) at patient's floor/unit and/or counseling patient: Coding Level of Care Code 36942 Post Operative Follow-Up Diagnoses Closed fracture of left hip, initial encounter S72.002A Encounter type: initial encounter Fracture type: closed (1) Fracture of left hip Encounter type: initial encounter Fracture type: closed Qualified Code(s): S72.002A - Fracture of unspecified part of neck of left femur, initial encounter for closed fracture
[2025-04-30] MEDS: POLYETHYLENE (MIRALAX) 17 GM PACK PO SCH (09:12)
[2025-04-30] MEDS: SODIUM CHLORIDE 0.9% 1,000 ML IV ONE (09:38)
[2025-04-30] MEDS: MAGNESIUM OXIDE 400 MG TAB PO ONE (09:49)
[2025-04-30 12:37] LABS: Hematocrit (blood only) 31.5 % (37.0-47.0); Hemoglobin 10.6 g/dl (12.0-16.0)
--- NOTE | 2025-04-30 14:24 | Hospitalist Progress Note ---
Date of Service April 30, 2025 Assessment & Plan (1) Fracture of left hip: (2) HLD (hyperlipidemia): (3) Asthma: (4) H/O: stroke with residual effects: Plan 75 yr old F with PMHx of HLD, HTN, asthma, h/o stroke, osteoporosis, anxiety brought to ER after a mechanical fall. #Left hip fracture - confirmed on XR - Ortho recs appreciated, pt s/p left cemented anterior hip hemiarthroplasty on 04/28/25 , outpatient follow up in 2 weeks for progress check and staple / suture removal - pain control: tylenol q6h scheduled with q6h prn, cont prn oxycodone PO and prn IV morphine - PT / OT post surgery #Orthostatic hypotension - rpt hemoglobin stable at 10.6 - s/p 1L NS bolus - reassess orthostatic vitals , if persistent, will give additional fluids - hold lisinopril #h/o stroke #HLD #HTN - cont aspirin (to resume after surgery), statin, lisinopril (hold) #Asthma - not in acute exacerbation - cont home meds #Anxiety - cont escitalopram #DVT ppx: SCDs, pharmacologic agent post surgery #Dispo- PT / OT recs rehab , pt can d/c to rehab once hemodynamic stability has been achieved #Code status: Full code 04/27: pt's at bedside 04/28: pt's at bedside 04/30: pt's at bedside Admission and Anticipated Discharge Date Admission Date: April 27, 2025 Subjective Much more awake today. Unfortunately, when she worked with PT / OT, her initial orthostatic vitals were good, but as she continued working with them, she became pale. Her SBP dropped into the 70s. With rest her BP recuperated. Review of Systems Review of Systems: Comprehensive ROS completed and is otherwise negative. Physical Exam Physical Exam: Gen: no acute distress, lying in bed comfortable HEENT: NC/AT, MMM Lungs: nonlabored breathing, CTAB CVS: s1s2nl, RRR Abd: nl bowel sounds, soft, NT / ND : + austin Ext: no edema Neuro: awake, alert, communicating appropriately Psych: calm, cooperative Results & Data Results & Data Vital Signs (Past 12 Hours) Vital Signs Temp Pulse Resp BP Pulse Ox O2 Del Method O2 Flow Rate 04/30/25 08:01 36.5 C 72 16 108/68 94 Nasal Cannula 1 04/30/25 07:15 Nasal Cannula 1 PG Care Time/CCT Total # of Minutes Spent Total Time Spent with Patient: Total time spent is greater than 50% in coordination of care (as documented) at patient's floor/unit and/or counseling patient: Coding Level of Care Code 28417 SUB INP/OBS CARE 3/50MIN Diagnoses Closed fracture of left hip, initial encounter S72.002A Encounter type: initial encounter Fracture type: closed HLD (hyperlipidemia) E78.5 Asthma J45.909 H/O: stroke with residual effects I69.30 (1) Fracture of left hip Encounter type: initial encounter Fracture type: closed Qualified Code(s): S72.002A - Fracture of unspecified part of neck of left femur, initial encounter for closed fracture
[2025-04-30] MEDS: PLASMA-LYTE A 1,000 ML IV ONE (18:02)
[2025-04-30 18:09] LABS: Hematocrit (blood only) 32.6 % (37.0-47.0); Hemoglobin 10.6 g/dl (12.0-16.0)
--- NOTE | 2025-04-30 18:51 | Communication Note ---
Date of Service: April 30, 2025 Pt remains orthostatic s/p 1L NS bolus earlier, will give additional 1L NS bolus Hgb at noon was stable, will repeat Hgb remains stable if drop in Hgb, will consider CT left hip
[2025-04-30] MEDS: DOCUSATE SODIUM/SENNA 50/8.6MG TAB PO SCH (20:35)
[2025-04-30] MEDS: PSYLLIUM HUSK 4GM PACKET PO SCH (20:39)
[2025-05-01 08:09] VITALS: PULSE 72; RESP 18; TEMP 97.9
[2025-05-01 08:13] VITALS: O2SAT 90
--- NOTE | 2025-05-01 08:39 | Discharge Summary ---
Discharge Summary Date of Service May 01, 2025 Principal Dx & Hospital Course #1 = Principal Diagnosis (1) Fracture of left hip: (2) HLD (hyperlipidemia): (3) Asthma: (4) H/O: stroke with residual effects: Plan 75 yr old F with PMHx of HLD, HTN, asthma, h/o stroke, osteoporosis, anxiety brought to ER after a mechanical fall. #Left hip fracture - confirmed on XR - Ortho recs appreciated, pt s/p left cemented anterior hip hemiarthroplasty on 04/28/25 , outpatient follow up in 2 weeks for progress check and staple / suture removal - pain control: tylenol q6h scheduled with q6h prn, cont prn oxycodone PO - PT / OT - constipation - no BM yet cont bowel regimen, austin removed voiding well - orthostatic hypotension 04/30 was symptomatic, given IVF and lisinopril held. Not orthostatic today and no lightheadedness, walked 100 feet #h/o stroke #HLD #HTN - cont aspirin (to resume after surgery), statin, lisinopril (hold) #Asthma - not in acute exacerbation - cont home meds #Anxiety - cont escitalopram #DVT ppx: bid ASA per ortho dispo - [facility]hab Admission HPI Per Admitting Provider 75 yr old F with PMHx of HLD, HTN, asthma, h/o stroke, osteoporosis, anxiety brought to ER after a mechanical fall. 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 She was helped up by bystanders but she was having severe hip pain. Thus she was brought to the ED. She denied head strike, LOC, or any prodromal symptoms. Aside from anxiety and pain, she is denying any other sympptoms. Workup revealed acute subcapital fracture of left femur. Pt now being admitted to the hospital. Discharge Exam Last 24h vitals reviewed GEN: no acute distress, sitting in bed HEENT: pupils equal, sclerae anicteric, moist MM RESP: normal WOB, CTAB CV: reg no mrg ABD: soft/nt/nd +BT : no austin SKIN: warm and dry, no generalized rashes NEURO: AOx person, place, and situation. Face symmetric, speech normal, moves 4 ext spontaneously and equally Discharge Plan Discharge Items Patient Disposition: Transfer Inpatient Rehab Fac Reason For Visit: HIP FRACTURE Discharge Diagnosis: hip fracture Condition on Discharge: Fair Activity: Per Instructions section Weightbearing: Full weightbearing Non-emergency contact: Surgeon Call non-emergency contact if: your symptoms worsen, your temperature is above 101.5, your wound has increased redness and your wound has increased drainage Follow-up/Referrals: Carlito Orr DO [Physician] - Rosa M Renae PA-C [Primary Care Provider] - Diet: Regular Addtl Attending Provider Instructions: PT and OT evaluate and treat Lisinopril held for hypotension and orthostatic hypotension Not orthostatic 05/01 Bowel regimen - has not had postop BM yet 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 You were shown a series of exercises in the hospital. Do these exercises three times each day if you are able. 2. Get up and walk several times each day if you are capable. Make sure you have assistance is needed. For the first four weeks, try not to stand or walk for more than one hour at a time. If you do stand or walk for more than one hour, you will not hurt anything, but your leg will likely swell. 3. As you feel comfortable, you may change from the walker or crutches to a cane and then to independent walking if you are able. Please be safe. Medications: 1. Narcotic You will likely be sent from the hospital with the narcotic pain medication that worked best throughout your stay. 2. Aspirin You will be required to take Aspirin 81mg twice a day for 6 weeks after surgery to prevent blood clots. 3. Other medications may be given for specific circumstances. If you have any questions, please call the office at [phone]. 4. Resume previous home medications unless otherwise instructed TEDs/Elastic Stockings: The white elastic stockings help limit swelling and prevent blood clots from forming in your legs. The more you wear them, the more they work. Wear them for 2 weeks. Dressing Care: Leave the Silverlon dressing in place for 7 days. After 7 days you may remove the dressing. Do not remove the [place] zip closure. If the incision is not draining then you may leave the [place] zip closure open to air. If there is a little bit of drainage or if the [place] zip closure is getting stuck on your clothing then cover the incision with a dry dressing. The [place] zip closure will be removed at your 2 week follow-up appointment. Showering: You may shower with the Silverlon dressing in place. Do not let the shower spray hit the dressing directly. Pat the [place] dressing dry. If the dressing becomes wet underneath, then simply remove the dressing. Keep the incision dry until you are 7 days out from the day of surgery. After 7 days you may remove the [place]lon dressing and shower with the [place] zip closure exposed. Let soapy water run over the [place] zip closure and pat them dry. Do not scrub or soak the incision. Diet: You may resume your previous diet. Things To Watch For: 1. Drainage from the incision site that occurs more than one week after your surgery. 2. Increased redness at the incision site. 3. Fever above 102 degrees Fahrenheit. 4. Unusual chest pain or shortness of breath. 5. Call [facility] at with any of the above problems Follow-Up Visit: Follow-up with Dr. Orr's office 2-3 weeks after your day of surgery. We will remove your loan and answer any questions. If you have any additional questions or concerns, Dr Orr is usually in the office at the same time and will be available Please call the office to set up an appointment for time that works for you. Pending Studies at Discharge: No Stand-Alone Forms: My [facility] Skilled Items Patient informed of condition?: Yes DNR: No Discharge Level of Care: Acute rehab Communicable Disease: No Discharge Prognosis: Improving Lines: None Urinary Catheter: No Medications and DC Order Prescriptions: New acetaminophen [Tylenol Extra Strength] 500 mg Tablet 500 mg PO Q6H Qty: 0 0RF acetaminophen [Tylenol Extra Strength] 500 mg Tablet 500 mg PO Q6H PRNQty: 0 0RF aspirin 81 mg Tablet,Delayed Release (Dr/Ec) 81 mg PO BID Qty: 0 0RF sennosides-docusate sodium [Senokot-S] 8.6-50 mg Tablet 2 tab PO BID Qty: 0 0RF oxycodone 5 mg Tablet 5 mg PO Q4H PRNQty: 0 0RF polyethylene glycol 3350 [Miralax] 17 gram Powder In Packet 17 g PO DAILY Qty: 0 0RF Continued psyllium husk [Metamucil] 0.4 gram capsule 0.4 g PO DAILY PreserVision AREDS-2 250-90-40-1 mg Capsule 1 tab PO [facility] levocetirizine [Xyzal] 5 mg tablet 5 mg PO QPM atorvastatin 40 mg tablet 40 mg PO HS escitalopram oxalate 10 mg tablet 10 mg PO QAM montelukast 10 mg tablet 10 mg PO QPM fluticasone propionate 50 mcg/actuation spray,suspension 2 spray INTRANASAL DAILY PRN (Reason: Congestion) cholecalciferol (vitamin D3) [Vitamin D3] 125 mcg (5,000 unit) Tablet 125 mcg PO QAM cyclosporine [Restasis] 0.05 % Dropperette 1 drp OPHTHALMIC (EYE) Q12H Blink Tears 0.25 % Drops 1 drp ophthalmic (eye) [facility] Held lisinopril 2.5 mg tablet 2.5 mg PO QAM Hold Instructions: held for postop hypotension Discontinued aspirin 81 mg tablet,delayed release (DR/EC) 81 mg PO QAM Discharge Orders: Discharge Order (Routine); Ordered 05/01/25 Ordered By: Sangeetha Mcbride Admission Data Admit Date/Time: 04/27/25 18:46 Attending Provider: Sangeetha Mcbride Admit Provider: Jaz Frausto Primary Care Provider: Rosa M Renae Other Providers: Jaz Frausto; Carlito Orr Other Interventions: Discharge Summary Assessment (RN) Last Done: 05/01/25 14:58 Hospital Stay Data Consultations 04/27/25 16:51 ED Decision to Admit Stat 04/27/25 16:54 Consult Orthopedic Surgery Stat Procedures Performed Operation Date: 04/28/25 10:00 Actual Procedures p Left Cemented Anterior Hip Arthroplasty(Left) - Carlito Orr DO Diagnostic Imagining Performed 04/28/25 FL hip LT 1V Routine Pending Results Patient Have Any Pending Studies at Discharge: No Discharge Instructions Given to Patient (Per Discharging Provider) PT and OT evaluate and treat Lisinopril held for hypotension and orthostatic hypotension Not orthostatic 05/01 Bowel regimen - has not had postop BM yet Total Time Total Time Spent Total Time Spent (In Minutes): I personally spent: 35 minutes today on clinical care activities including: reviewing chart notes and vital signs reviewing labs discussion with resident care director examining and counseling the patient writing orders, discharge instructions documentation Coding Level of Care Code 74957 INP/OBS DISCH >30 MIN Diagnoses Closed fracture of left hip, initial encounter S72.002A Encounter type: initial encounter Fracture type: closed HLD (hyperlipidemia) E78.5 Asthma J45.909 H/O: stroke with residual effects I69.30
[2025-05-01 08:54] LABS: Hematocrit (blood only) 27.4 % (37.0-47.0); Hemoglobin 9.2 g/dl (12.0-16.0); Mean Corpuscular Hemoglobin 30.5 pg (25.0-34.0); Mean Corpuscular Volume 90.7 fL (80.0-100.0); Platelet Count 171 K/uL (130-400); RDW Standard Deviation 43.8 fL (36.4-46.3); Red Blood Count 3.02 M/uL (4.20-5.40); White Blood Count 7.67 K/ul (4.8-10.8)
[2025-05-01 09:11] LABS: Anion Gap 4.0 (3-11); Blood Urea Nitrogen 7.0 mg/dl (6-23); Calcium 8.6 mg/dl (8.6-10.3); Carbon Dioxide 30.0 mmol/L (21-32); Chloride 99.0 mmol/L (98-107); Creatinine Clr Calc Pharmacy 84.7 ml/min; Glucose 146.0 mg/dl (70-99(Fasting)); Magnesium 1.9 mg/dl (1.7-2.4); Potassium 4.4 mmol/L (3.5-5.1); Sodium 133.0 mmol/L (136-145)
--- NOTE | 2025-05-01 11:17 | Orthopedic Progress Note ---
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 Doing well overall, pain managed and improved function. Denies fever/chills, chest pain/SOB, nausea/vomiting. Otherwise no complaints. Review of Systems All systems reviewed & are unremarkable except as noted in HPI & below. Physical Exam * Musculoskeletal: Left hip surgical dressing CDI, not removed for exam. Otherwise no obvious deformity or overlying skin changes. Diffuse TTP proximal thigh and hip region. Otherwise no specific tenderness of distal thigh, lower leg, foot/ankle. AROM hip flexion intact. AROM foot/ankle intact. Sensation intact plantar/dorsal foot. Brisk capillary refill. Results & Data Results & Data Laboratory Results . Diagnostic Findings . PG Care Time/CCT Total # of Minutes Spent Total Time Spent with Patient: Total time spent is greater than 50% in coordination of care (as documented) at patient's floor/unit and/or counseling patient: Coding Level of Care Code 49452 Post Operative Follow-Up Diagnoses Closed fracture of left hip, initial encounter S72.002A Encounter type: initial encounter Fracture type: closed (1) Fracture of left hip Encounter type: initial encounter Fracture type: closed Qualified Code(s): S72.002A - Fracture of unspecified part of neck of left femur, initial encounter for closed fracture
[2025-05-01 14:40] VITALS: BP 130/66
== END 2025-05-01 14:49 | DRG 522 ==
LOC: ED 15:09 → 3N 18:19 → SUATTDRO 18:46 → 3N 19:40